=== PATIENT | male | born 1985 | race Caucasian/White ===

== ENCOUNTER 2022-12-25 08:00 | Outpatient (RCR) | payer OTHER, MEDICAID, SELFPAY ==
--- NOTE | 2022-12-25 09:00 | BH.SGPN.GN ---
Behaviors/Verbalizations/Mental Status: [] Eye contact is good. Motor activity is appropriate. Appearance is casual. Speech is Appropriate. Mood is depressed. Affect is flat. Thoughts are linear and logical. No evidence of psychosis. Reviewed daily check in sheet and pt reports 4/5 for suicidal ideations and 0/5 for intent. Completed [facility] screening prior to group. This may be baseline. Client Response/Progress/Benefit: [] Pt participate when prompted. Attentive. Daily symptom tracker notes 5/5 for depression, anxiety, and irritability. This was pt's first day in the PHP program. Shared with the group that his goals are to be better than I was Reported struggles mainly with depression, anxiety, anger, and stress. He did not elaborate much and was brief regarding his mental health struggles. No progress noted as this was first day in PHP. Group empathized with his struggles and provided support, suggestions, and advice for his first day in PHP which was beneficial.Will continue in IOP to prevent decompensation/re-admission to psych unit, maintain safety, increase healthy coping, and improve functioning. Narrative Note: []
--- NOTE | 2022-12-25 09:00 | BH.COMM_ITS ---
Communication Note - Communication with Client Communication Note: Pt completed initial paperwork. No significant changes since pre-admission screening. Completed [facility]. Consulted with Dr. Luevano with plan to admit to [facility] with hx of F33.1. Treatment team in agreement with starting patient today as opposed to next week due to severity of symptoms. Based on current symptoms he meets criteria and would benefit from immediate admission to the program rather than waiting till next week simply to appease the 48 hour rule for psych evals.
--- NOTE | 2022-12-25 10:15 | BH.SGPN.GN ---
Behaviors/Verbalizations/Mental Status: []Eye contact is good. Motor activity is appropriate. Appearance is casual. Speech is Appropriate. Mood is depressed. Affect is constricted. Thoughts are linear and logical. No evidence of psychosis. Client Response/Progress/Benefit: [] Pt was a passive participant in group discussions. Attentive during psychoeducation on the 4 communication styles and the obstacles to effective communication. listened during interactive discussion on the benefits of communicating effectively which included; having one's needs met, helping others get their needs met, and building connection with others. Worked well in small group in which pt and peers identified the benefits and disadvantages to the different communication styles. Pt reports being passive which reinforces depression. Benefited from increased understanding of communication styles and how these can impact effective communication. Will continue PHP tx to prevent decompensation, gain healthy coping skills, and reduce suicidal ideations. Narrative Note: []
--- NOTE | 2022-12-25 11:15 | BH.SGPN.GN ---
Behaviors/Verbalizations/Mental Status: []Client alert and oriented, casually dressed and groomed. Eye contact good. Motor activity appropriate. Speech within normal limits. Affect congruent, mood anxious and depressed. Thoughts linear, logical, no signs of hallucinations or delusions Client Response/Progress/Benefit: []Client responded well to session AEB client listening attentively to others and providing input during group discussion. Client did well in the activity to be assertive and ask for feedback. Recognizes if group wasn't assertive in activity, they wouldn't have been successful. Discussed with group communication strategies used to make activity successful. Attentive during psychoeducation on interpersonal DBT skill CHRISTO. Client seemed to benefit from increasing awareness of healthy strategies to improve communication. Will d/c from IOP tx given progress made and improved stability. Pt to continue PHP tx to improve daily functioning, increase mood stability, and prevent decompensation. Narrative Note: []
--- NOTE | 2022-12-25 14:00 | BH.MTP_ITS ---
Master Treatment Plan Patient Information Program Physician:: Leonor Araujo Primary Therapist:: Boogie Molina Psychiatric Diagnoses Psychiatric Diagnoses:: MDD, recurrent, severe, w/o psychosis Anxiety Disorder, unspecified PTSD Alcohol and opiate use disorders, in remission for 10 years Diagnosis Code(s):: F33.2 Estimated LOS Estimated LOS (in weeks):: 2 Problem/Goal #1 Problem/Goal #1 Stated Goal:: Client will reduce depressive symptoms, worthlessness, negative core beliefs, and suicidal thoughts AEB by self report. Description of Barriers: Chronic pain, significant psychosocial stressors, limited progress from traditional outpatient interventions, treatment resistant depression. Functional Impact: Mental health symptoms impacting overall functioning at home and socially. Along with physical pain mental health impacting ability to ma intain employment. Goal Relevant Strengths/Supports: Intelligent, motivated, insight into his mental health struggles and obstacles Objectives Objective #1: Stated Objective: Client will work with therapist to develop a ?crisis plan? which includes emergency telephone numbers, internal/external coping strat egies for SI/overwhelming emotions, lists of supports, warning signs, positive aspects of life, and motivations. Interventions: Through individual and group counseling pt will learn and practice various internal and external coping skills for emotional dysregulation. Therapist will provide patient with safety plan worksheet (if he desires) and work with pt. to develop individualized plan which includes internal coping skills, external coping skills, support, and crisis numbers. Discharge Criteria: Complete safety plan and be able to verbalize plan to therapist (if he chooses not to complete worksheet). Target Date: 01/08/23 Review Date: 01/07/23 Objective #2: Stated Objective: Client will identify and replace 2-3 negative thinking patterns that reinforce depressive symptoms, self-hate, mistaken beliefs, and negative self-talk. Interventions: Through individual and group counseling will provide education on mistaken beliefs, CBT concepts, cognitive distortions and teach client the connection between thoughts, emotions, and feelings. Therapist will assist client in identifying, challenging, and replacing dysfunctional thoughts with positive, more realistic thoughts. Discharge Criteria: Start a though log. Identify 3 mistaken beliefs and cognitive distortions. Target Date: 01/08/23 Review Date: 01/07/23 Problem/Goal #2 Problem/Goal #2 Stated Goal:: Stabilize anxiety level while increasing ability to function on a daily basis AEB self-report Description of Barriers: Chronic pain, significant psychosocial stressors, limited progress from traditional outpatient interventions, Functional Impact: Mental health symptoms impacting overall functioning at home and socially. Along with physical pain mental health impacting ability to maintain employment. Goal Relevant Strengths/Supports: Intelligent, motivated, insight into his mental health struggles and obstacles Objectives Objective #1: Stated Objective: Client will learn and implement 2-3 calming skills to reduce overall anxiety and manage anxiety Interventions: Through individual and group counseling will teach the client calming/relaxation skills (e.g., muscle relaxation, mindful breathing) and how to discriminate better between relaxation and tension; teach the client how to apply these skills to his/her daily life. Discharge Criteria: Able to identify and utilize 2-3 calming skills on consistent basis. Target Date: 01/08/23 Review Date: 01/07/23
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
--- NOTE | 2022-12-25 14:19 | BH.MDN_ITS ---
Multi-Disciplinary Note - Note 45-min Individual Time Started:: 12:00 Date: 12/25/22 Purpose of session/treatment goals addressed:: Used to session to process first day in [facility] obtain history and current symptoms, and to begin to develop treatment plan goals. Eye Contact:: Good Motor Activity:: Appropriate Appearance:: Casual Speech:: Appropriate Mood:: Depressed Affect:: Congruent Thoughts:: Linear, Logical, No evidence of hallucinations/delusions noted Staff Interventions:: psychoeducation on: - mistaken beliefs and cognitive distortions, CBT techniques, treatment planning, goal setting Client Response:: Pt shared that his first day in [facility] was better than expected. Briefly discussed negative experience during inpatient admission at [facility] stating it was like long-term. Pt reports fleeting suicidal thoughts with methods (OD on pills) for several years, however recent exacerbation which led to voluntary inpatient admission from 12/09/22-12/13/22. Psychosocial stressors include chronic back pain, financial stress, and inability to maintain employment. 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 He is linked with outpatient therapist and psychiatrist who referred him to [facility]. His goals for treatment are Stop the ideations, Stop the negative thinking, and stop the over-thinking. Pt reports he will ruminate extensively on his problems and can't stop till I find a solution. Since most of his struggles do not have a solution he feels like a failure which ultimately leads to depression, hopelessness, and suicidal ideations. Belief that the more he analyzes a problem the higher the likelihood he will come to a solution. Risks/Concerns:: He denied active suicidal ideations, plan, or intent. He reports that the suicidal thoughts switch between passive thoughts of , survival ambivalence, and though about killing himself. Thoughts are mainly passive. Denies any history of attempts. Denies any history if intent. Protective factors are his children and . Progress Toward Goals/Plan:: Limited progress as this was pt's first day in [facility] He reported a positive experience participating in [facility] today and promises to return tomorrow. Support was beneficial today. Has working knowledge of CBT techniques, [id number], and ways to retrain the brain which he mainly taught himself through apps and internet research. He reports however that he struggles to implement these skills when overwhelmed. They appear to be reactive and after the fact when he is journaling. Receptive to education on CBT and mistaken beliefs. He is aware of crisis numbers and agreed to call crisis, PHP program, or proceed to the ER if he has strong urge to harm himself. Time Stopped:: 12:45
--- NOTE | 2022-12-25 14:39 | BH.MTP ---
Master Treatment Plan - Patient Information Program Physician:: Leonor Luevano Primary Therapist:: Boogie Molina - Estimated LOS Estimated LOS (in weeks):: 2
--- NOTE | 2022-12-25 14:39 | BH.PSA ---
Suicide Assessment Treatment Plan Recommendations
--- NOTE | 2022-12-26 09:00 | BH.SGPN.GN ---
Behaviors/Verbalizations/Mental Status: [] Eye contact is good. Motor activity is appropriate. Appearance is casual. Speech is Appropriate. Mood is depressed. Affect is congruent. Thoughts are linear and logical. No evidence of psychosis. Reviewed daily check in sheet and pt reports 3/5 for suicidal thoughts or note being in existence and 0/5 for intent. This is improved from yesterday. Client Response/Progress/Benefit: [] Pt participated at times during the group discussion. Attentive. Emotion for today is pain referring to his physical pain. Daily symptom tracker notes 5/5 for depression and irritability; 4/5 for anxiety. Pt's check in was very brief stating the his mental health win was completing responsibilities around the house. Briefly discussed his hobbies and how they are beneficial to his mental health. This is only second day of PHP so limited progress noted. Shared significant stressor is related to finances. Benefited from group support, encouragement, and feedback. Will continue in PHP to maintain safety, increase healthy coping, and to prevent decompensation/-re-admission. Narrative Note: []
--- NOTE | 2022-12-26 10:05 | BH.SGPN.GN ---
Behaviors/Verbalizations/Mental Status: []Pt alert and oriented, casually dressed and groomed. Eye contact good. Motor activity appropriate. Speech within normal limits. Affect congruent, mood anxious and depressed. Thoughts linear, logical, no signs of hallucinations or delusions. Client Response/Progress/Benefit: []Pt responded well to session, attentive during psychoeducation on SMART goals (Specific, Measurable, Achievable, Realistic, and Time-bound). Participated in an interactive discussion with peers in which they worked together to define what a goal is and the benefits of having goals. Group identified benefits as; gives purpose, improves motivation, improves relationships, and personal growth. Participated in small group discussion identifying barriers to setting goals and following through with goals. Pt identified his personal barriers to include unrealistic expectations, distortions, and fear of judgement. Benefited from increased awareness of benefits and strategies for goal-setting. Pt to continue in PHP to promote mood stability, maintain safety, as well as further promote self-care and prevent decompensation. Narrative Note: []
--- NOTE | 2022-12-26 13:48 | BH.MDN ---
Multi-Disciplinary Note - Note 60-min Individual Time Started:: 12:05 Date: 12/26/22 Purpose of session/treatment goals addressed:: Used the session to review current symptoms and progress. Treatment planning. Eye Contact:: Good Motor Activity:: Appropriate Appearance:: Casual Speech:: Appropriate Mood:: Depressed Affect:: Congruent Thoughts:: Linear, Logical, No evidence of hallucinations/delusions noted Staff Interventions:: psychoeducation on: - mistaken beliefs, CBT techniques - introduced thought log Client Response:: Pt continues to report benefit from PHP groups. Briefly discussed the group topic today which was SMART goals. Current coping strategies that he finds most beneficial is journaling. He has several different types of journals and has watched YouTube videos and researched effective techniques for journaling. Journaling helps give clarity to his thoughts and is a way to vent his emotions, frustrations, and thoughts. Pt also reports benefits from his hobbies (woodworking, gardening, playing drums). Receptive to education on cognitive distortions and mistaken beliefs which was a majority of the session. Risks/Concerns:: Pt reports fleeting suicidal thoughts for several years. Thoughts are primarily passive. No active SI, plan, or intent. Protective factors. Future-oriented. No current concerns as he is currently near baseline. According to his daily symptom tracker his SI scores reduced from yesterday. Progress Toward Goals/Plan:: Pt reports progress since starting IOP. According to self-report he is benefiting from group support and psychoeducation. Pt expressed interest in CBT skills so today was spent introducing the connection between thoughts, feelings, and actions. Also introduced cognitive distortions. Was given assignment to start a thought log and to read a handout on mistaken beliefs. Primary coping skills are currently distraction through hobbies and journaling. Journaling is basically used to vent thoughts. He does not review his thoughts after writing them down not does he attempt to challenge or reframe. Goal is to gain insight into his negative automatic thoughts and cognitive distortion to begin to reframe and challenge. Plan is to continue in PHP to maintain safety, prevent decompensation/re-admission, and to stabilize mood. Time Stopped:: 12:55
--- NOTE | 2022-12-29 09:00 | BH.SGPN.GN ---
Behaviors/Verbalizations/Mental Status: []Eye contact good. Motor activity appropriate. Speech within normal limits. Affect flat, mood depressed. Thoughts linear, logical, no signs of hallucinations or delusions. Reviewed client?s symptom tracker, no risk for suicidal ideation, plan, or intent as of 12/29/2022. Client Response/Progress/Benefit: []Pt responded well to session, attentive and engaged. Pt reports feeling blah this morning as pt continues to report financial issues as his biggest stressor. Pt shared he is finding benefit from PHP tx though and pt reports he is using skills outside of IOP. Pt's mental health win today is that he worked outside in his garden this weekend and he has been reading self-help books. Pt appeared to benefit from positive reinforcement and reflecting on his application of coping skills. Pt will continue PHP tx to promote mood stability, further reduce negative thinking patterns, and improve daily functioning. Narrative Note: []
--- NOTE | 2022-12-29 10:10 | BH.SGPN.GN ---
Behaviors/Verbalizations/Mental Status: []Client alert and oriented, casually dressed and groomed. Eye contact fair. Motor activity appropriate. Speech within normal limits. Affect constricted, mood dysthymic. Thoughts linear, logical, no signs of hallucinations or delusions. Client Response/Progress/Benefit: []Client was an engaged participant in group discussions and activity. Attentive during psychoeducation. Client engaged in activity in which group was able to make connections about how can be easier to find positives in others compared to self. Engaged in interactive discussion on the definition of perspective, how perspective is formed, and why perspective is important in treatment. Client stated when he first started treatment his perspective was very negative and identifies today his perspective is starting to move towards hopeful. Client stated he recognizes he needs to be more honest and open. Will continue in PHP to increase healthy coping, challenge negative thinking, and prevent decompensation.
--- NOTE | 2022-12-29 11:20 | BH.SGPN.GN ---
Behaviors/Verbalizations/Mental Status: []Pt alert and oriented, casually dressed and groomed. Eye contact good. Motor activity appropriate. Speech within normal limits. Affect congruent, mood euthymic and anxious. Thoughts linear, logical, no signs of hallucinations or delusions. Client Response/Progress/Benefit: []Pt was attentive and contributed to small group discussion. Pt worked with group to identify strategies to challenge one?s perspective which group identified: thought challenge, reaching out to supports, grounding skills, and accomplishment log. Connected with discussion on the importance of recognizing personal strengths in challenging perspective. Pt acknowledged a personal strength of gratitude and pt wants to work on challenging perspective by practicing reaching out to his support system to help him challenge perspective. Benefited from identifying personal strengths and strategies for challenging perspective. Pt to continue PHP tx to promote mood stability, increase use of healthy coping skills, and prevent decompensation. Narrative Note: []
--- NOTE | 2022-12-29 12:44 | BH.MDN ---
Multi-Disciplinary Note - Note 45-min Individual Time Started:: 12:00 Date: 12/29/22 Purpose of session/treatment goals addressed:: To review homework from last session on mistaken beliefs and practice cognitive restructuring. Eye Contact:: Good Motor Activity:: Appropriate Appearance:: Neat Speech:: Appropriate Mood:: Euthymic Affect:: Full Thoughts:: Linear, Logical, No evidence of hallucinations/delusions noted Staff Interventions:: thought challenging, CBT techniques, strengths perspective, goal setting, taught coping skills - discussed dialectical thinking, other - reviewed homework on mistaken beliefs. Client Response:: Pt responded well to meeting with therapist as pt's regular PHP therapist is out of the office. Pt shared he completed his homework and found it helpful in identifying his mistaken beliefs and distortions. Pt noted that his self-assessment could change based on his mood for the day and right now I go from positive to negative so quickly. Pt connected with the mistaken belief of not being able to trust people or rely on others and that he has to be perfect. Pt shared most of his beliefs were taught to him in childhood and he wants to break this cycle from continuing with his own kids. Pt shared he has been writing out his thoughts using a thought log and pt finds this helpful. Pt stated he understands that it will take time to rewire his brain, but pt is trying to immerse himself in mental health treatment so he can do this. Pt shared he practiced thought challenging over the weekend and found it helpful. Discussed the importance of changing behaviors as well as challenging mistaken beliefs to form new core beliefs. Pt receptive to handout on five questions to ask your mistaken beliefs. Pt encouraged to use this when he works on his thought logs. Risks/Concerns:: Pt denied active suicidal ideations, plan, or intent. Pt reports that the suicidal thoughts switch between passive thoughts of , survival ambivalence, and thoughts about killing himself. Thoughts are mainly passive. Denies any history of attempts. Denies any history if intent. Protective factors are his children and . Progress Toward Goals/Plan:: Pt appears to be making progress towards tx goals AEB his self-report of practicing coping skills outside of IOP and pt completing his homework consistently. Pt's motivation levels are high and pt reports I will do whatever it takes to get better. Pt continues to endorse a depressed mood, negative thinking patterns, chronic SI, worthlessness, and ruminations. Pt will continue in PHP to maintain safety, prevent decompensation/re-admission, and to stabilize mood. Time Stopped:: 12:38
--- NOTE | 2022-12-30 11:16 | BH.COMM_ITS ---
Communication Note - Communication with Client Communication Note: Pt cancelled PHP today. He had a medical appointment s cheduled in the AM which conflicted with the program
--- NOTE | 2022-12-30 11:16 | BH.COMM ---
Communication Note - Communication with Client Communication Note: Pt cancelled PHP today. He had a medical appointment scheduled in the AM which conflicted with the program
--- NOTE | 2022-12-31 08:45 | BH.NA ---
Physical Data Vital Signs Pulse Rate: 66 Blood Pressure: 134/87 Height/Weight Height: 1.8 m Weight:: 81.647 kg Weight in Pounds: 180.0 lbs Current Medication Compliance Medication Compliance Do you take your medication as prescribed?: Yes Nutritional History Appetite Nutritional Instructions: Describe your appetite:: Fair Additional nutritional information:: Client states his weight fluctuates between 175-200lbs. Client reports a decreased appetite. Functional Assessment Sleep Pattern Describe any problems with sleeping: Client states since his hospitalization in early December, he has been sleeping about 2-5 hours per night. Sensory/Communication Assess Communication Problems Do you have difficulty understanding what people are saying?: No Medical Problems/History Neurological Conditions Neurological: Other (See comments) Comments:: one seizure in 2009 Musculoskeletal Conditions Musculoskeletal: Other (See comments) Comments:: chronic back pain since a work injury in the early Pain Assessment Do you have acute or chronic pain?: Yes (back) Surgical History Surgical History Have you had any surgeries? If so, list type and date:: Yes (eardrum reconstruction) Substance Abuse Substance Abuse Please describe substance abuse in the last 30 days:: Client states he has been sober of alcohol and opiates for 10 years. Client states he was taking opiates years ago when he first had his back injury. Client chews tobacco. Client states he has a medical marijuana card and he uses it daily all the time to help with his back pain. Mental Status Summary Mental Status Significant Findings/Observations on Appearance and Mood:: Client is alert and oriented x4. Client is casually groomed with good hygiene. Client is cooperative with assessment. Client makes good eye contact. Client's voice has normal rate and volume. Client has appropriate affect. Client makes logical associations. Client has normal processing. Client denies delusions/hallucinations. Client states he has chronic fleeting SI, denies intent or plan since hospitalization in early December. Suicide Assessment Suicidal Ideation Are you currently or have you been suicidal in the past?: Yes (fleeting SI) Suicidal Intentional Rating Scale (SIRS): Suicidal thoughts (past) Physician Notification Past Psychiatric History MH Treatment Hx Past Psychiatric Medications:: Celexa, Gabapentin, others he does not remember names of Age of first mental health symptoms: Client states he first felt depressed around age 7 and was first on medication for his mental health as a teenager. Describe (age, circumstance, etc) any past hospitalizations: December 09-2022 at [facility] in [place] voluntarily for SI with thoughts of methods. Client does have a history of suicide attempts as a teenager. Current providers for mental health treatment (counselor, psychiatrist, family service caseworker, etc.): [id number] counseling and psychiatry Fall Risk Assessment Age Age: Less than 60 Mental Status Mental Status: Willing & able to ask for assistance when needed Physical Status Physical Status: No problems Impairments Impairments: None Elimination Elimination: Continent AND independent Gait or Balance Gait or Balance: Walks independently Hx of Falls History of falls in the past 6 months: No known history Medications/Substances Psychotropics:: Antipsychotics Medications/substances used within the past 24 hours or ordered to administer: 1-2 of the medications/substances listed above Total Score Total Points:: 1 RN Summary of Impressions Impressions Recommendations Impressions: Psychiatric Issues: 1. Major depressive disorder, recurrent, severe without psychosis 2. Anxiety disorder, unspecifid 3. PTSD 4. Alcohol and opiate use disorders, in remission for 10 years Level of Care How do the client's current symptoms and functional deficits support need for this level of care?: Client was referred to IOP/PHP by outpatient psychiatry after a voluntary hospitalization for SI with thoughts of methods earlier this month. Client states he has felt like he is in a dark place for awhile, and states he started having thoughts of how he could kill himself. Client states he has chronic suicidal thoughts, but usually they are fleeting and he does not have intent/plan. Client states when he started to think about methods, he knew he needed more help. Client reports hospitalization was not very helpful, but states he is glad to be in IOP/PHP. Client states his biggest stressor is financial, stating I'm just tired of feeling like I can't afford anything and not being able to work. Client reports daily guilt over not providing financially for his family. IOP/PHP will promote gains and prevent further decompensation while providing social support and skills training.
--- NOTE | 2022-12-31 09:05 | BH.SGPN.GN ---
Behaviors/Verbalizations/Mental Status: []Eye contact fair to good. Motor activity appropriate. Speech within normal limits. Affect congruent, mood anxious and hopeful. Thoughts linear, logical, no signs of hallucinations or delusions. Reviewed client?s symptom tracker, no reported suicidal ideation, denies plan, or intent as of 12/31/2022. Client Response/Progress/Benefit: [] Client receptive of session, attentive and willing to process with group. Identified current mental health wins as having an initial ECT tx consultation and is feeling more encouraged and hopeful as a result. Additional win identified as helping a stray cat in the neighborhood deliver kittens and feeling excited about taking on some of the caregiving responsibilities and feeling proud of doing something kind for someone else. Current stressor noted as finances, however shared recently getting on food stamps which has helped to reduce some of his stress as well. Client appeared to benefit from group support and encouragement. Recommended continued PHP tx to continue to increase overall functioning, improve distress tolerance and thought challenging, as well as promote mood stability. Narrative Note: []
[2022-12-31 09:28] VITALS: BP 134/87; PULSE 66
--- NOTE | 2022-12-31 10:15 | BH.SGPN.GN ---
Behaviors/Verbalizations/Mental Status: [] Client alert and oriented, casually dressed and groomed. Eye contact good. Motor activity appropriate. Speech within normal limits. Affect congruent, mood euthymic. Thoughts linear, logical, no signs of hallucinations or delusions. Client Response/Progress/Benefit: [] Client responded session by being attentive and taking notes. Client provided some input during discussion. Group identified the benefits of change which included: personal growth, positive perspective, increased confidence and better mental health. Worked with the group to identify barriers to change, which included: uncomfortable emotions such as anxiety, lack of awareness, low energy, support system, and negative thinking. Client stated fear and anxiety about the income are barriers that keep him from making changes. Client attentive in activity where they identified and discussed the emotions related to change. Appear to benefit from increased awareness and understanding of emotions, benefits, and barriers related to change. Will continue IOP tx to improve daily functioning, increase healthy coping skills, and prevent decompensation.
--- NOTE | 2022-12-31 11:15 | BH.SGPN.GN ---
Behaviors/Verbalizations/Mental Status: []Pt alert and oriented, neatly dressed and groomed. Eye contact fair. Motor activity appropriate. Speech within normal limits. Affect congruent, mood euthymic. Thoughts linear, logical, no signs of hallucinations or delusions Client Response/Progress/Benefit: [] Pt responded well to session, attentive AEB participating in activity and actively engaging in group discussion. Group processed activity to relate the strategies used to overcome barriers in the activity to managing change in own life. Discussed and set SMART goal in group as it relates to change group members are wanting to make. Pt identified change they want as reducing negative self-talk by using a thought log. Identified being in the action stage but negative thinking patterns keeping pt from following through consistently. Pt stated to get to the action stage consistently, pt will need to use opposite action and schedule time. Appeared to benefit from identifying a small goal to work towards. Pt will continue PHP tx to prevent decompensation and rehospitalization. Narrative Note: []
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
--- NOTE | 2022-12-31 12:21 | BH.DR.ITP ---
Initial Treatment Plan Patient Information Visit Information: ADMISSION DATE: EXPECTED LOS: 4-6 weeks Problems/Symptoms Problem #1:: Depression Symptom:: Sadness, hopelessness, low energy, decreased concentration, biological disruption of appetite and weight, passive thoughts of , fleeting, passive suicidal ideation Problem #2:: Anxiety Symptom:: Worry, rumination, flashbacks, nightmares, panic attacks
--- NOTE | 2023-01-01 09:00 | BH.SGPN.GN ---
Behaviors/Verbalizations/Mental Status: [] Eye contact is good. Motor activity is appropriate. Appearance is casual. Speech is Appropriate. Mood is anxious. Affect is congruent. Thoughts are linear and logical. No evidence of psychosis. Reviewed daily check in sheet and pt reports 1/5 for suicidal thoughts and 0/5 for intent. This has been baseline. Client Response/Progress/Benefit: [] Pt participated at times during the group discussion. Attentive. Daily symptom tracker notes 5/5 for depression, anxiety, and irritability. Despite these high scores he reports being 'hopeful. Elaborates that he feels hopeful about the possibility of obtaining SSDI in the future. He has struggled to maintain consistent employment due to physical and mental health symptoms for the past 20 years. Being unemployed has led to significant financial stressors stating the bank called again yesterday about the house. Pt is behind on his mortgage payments and is fearful they will lose the house. At this point he has not plan of action and appears to have resigned to the fact that the house will be foreclosed on it is what it is. Limited progress. Ruminations. Limited motivation or sense of urgency to act on stressors. Will continuue in PHP to maitnain safety, prevent decompensation/re-admission, and to increase healthy coping. Narrative Note: []
--- NOTE | 2023-01-01 10:15 | BH.SGPN.GN ---
Behaviors/Verbalizations/Mental Status: []Pt alert and oriented, casually dressed and groomed. Eye contact good. Motor activity appropriate. Speech within normal limits. Affect congruent, mood anxious. Thoughts linear, logical, no signs of hallucinations or delusions. Client Response/Progress/Benefit: []Pt receptive to session AEB contributing to discussion, as well listening attentively to others, and taking notes. Worked with group to brainstorm the positive and negative aspects of stress on physical and mental health. Group did well to identify the benefits of stress as well as the impact of distress on performance, relationships, and mental health. Pt identified their personal top stressors as: physical health, his mental health, and his finances. Pt seemed to benefit from increased awareness of current stressors and impact stress has on mental health. Recommended to continue PHP tx to prevent decompensation, increase stress management skills, and improve self-esteem. ?? Narrative Note: []
--- NOTE | 2023-01-01 11:15 | BH.SGPN.GN ---
Behaviors/Verbalizations/Mental Status: []Eye contact is good. Motor activity is appropriate. Appearance is casual. Speech is Appropriate. Mood is anxious and depressed. Affect is congruent. Thoughts are linear and logical. No evidence of psychosis. Client Response/Progress/Benefit: []Pt was an active participant in group discussions and experiential activity. Attentive during psychoeducation on the 4 A's (Avoid, adapt, alter, accept) of coping with stress as well as strategies to identify stressors in which one has no control, little control, or a great deal of control over. Shared that he would benefit most from working on avoid in regards to coping with stress of his current physical health problems by avoiding doing more than he is physically able to. Was able to identify the connection between the experimental activity and utilization of stress management skills. Benefited from increased awareness of stress management strategies. Will continue in PHP to maintain safety, prevent decompensation, and to increase healthy coping skills. Narrative Note: []
--- NOTE | 2023-01-01 13:00 | BH.MDN ---
Multi-Disciplinary Note Note 60-min Individual: Time Started:: 12:05 Date: 01/01/23 Purpose of session/treatment goals addressed:: Met with patient to review progress and current symptoms. Addressed treatment plan goals 1 and 2. Eye Contact:: Good Motor Activity:: Restless Appearance:: Casual Speech:: Appropriate Mood:: Irritable and Depressed Affect:: Congruent Thoughts:: Linear and No evidence of hallucinations/delusions noted Staff Interventions:: motivational interviewing, rapport building, treatment planning, goal setting and other (Developed an action strategy to address housing and disability stressors which are impacting pt's mental health)) Client Response:: Pt presents today reporting that he received another call from the [employer] regarding missing his mortgage for the straight month. According to pt he has spoken with bank representatives and they are aware of his current struggles however I don't think they care. He reports several outstanding bills and significant financial stressors. While his continues to work full-time pt reports the due to his physical pain and mental struggles he has not been able to maintain consistent employment. Tearful stating the its tough not to be able to provide for my family. When asked about option or plans regarding housing for the future pt states there nothing that can be done. Fearful that his and 2 kids will be homeless. States no family support that would be willing to house the family or help financially. Ruminations on several possibilities such as selling or renting the house, however has been unable to take action or make decision. I'm just waiting for them to kick us out He reports that he has accepted the fact that getting evicted is the most likely scenario and appears to have simply resigned to this fact and given up. Being unable to find solutions to numerous difficulty situations in his life (pain, finances, mental health, etc) he appears to have learned to simply take no action (learned helplessness). Therapist challenged him on strategies to gather more data ([facility] or [facility]ting, calling local housing authority to determine if the qualify for low-income housing, reaching out to local resources for assistance). He has also given up on applying for disability due to a paperwork obstacle so we problem-solved ways to overcome that obstacle. Risks/Concerns:: Pt continues to verbalize daily suicidal ideations (mostly passive/survival ambivalence). Denies active SI, plan, or intent. Daily scores are baseline. Progress Toward Goals/Plan:: Pt reports that PHP has been very helpful as a form of education and support. Primary coping skills is distraction (hobbies) which is helpful Learning internal coping CBT skills. Significant psychosocial stressors are impacting progress and mental health. Daily triggers to his struggles (phone calls from back and debt collectors) which exacerbate his symptoms. Currently in jeopardy of losing his house and being homeless however appears to have to action plan or prevent this from occurring. [place] helpless due to inability to find solutions to numerous difficult life situations. Utilized motivational interviewing and goal-setting strategies to identify an active plan to address housing and filing SSDI paperwork. Plan is to continue in PHP to maintain safety, prevent decompensation/re-admission, and to increase healthy coping skills. Time Stopped:: 13:00
--- NOTE | 2023-01-01 14:05 | BH.MDN_ITS ---
Multi-Disciplinary Note Note 60-min Individual: Time Started:: 12:05 Date: 12/31/22 Purpose of session/treatment goals addressed:: Purpose of the session was review current symptoms and progress in IOP. Used the session to review thought log Eye Contact:: Good Motor Activity:: Appropriate Appearance:: Casual Speech:: Appropriate Mood:: Anxious and Irritable Affect:: Congruent Thoughts:: Linear Staff Interventions:: thought challenging, CBT techniques, rapport building and treatment planning Client Response:: Pt continues to report benefit from group counseling and support. Finds that focusing on his mental health 4 hours a day is both di stracting and educational. Pt had completed homework from last week and a majority of the session was spent reviewing his thought log. Pt has been tracking his automatic negative thoughts, cognitive distortions, and then his response. He has also begun to challenge and re-frame his thoughts. We reviewed and processed each entry. Risks/Concerns:: Pt verbalize daily suicidal thoughts which he reports are mainly passive. Denies any plan or intent. Reports 1/5 for suicidal thoughts per daily tracker and 0/5 for intent. This has been baseline since entering [facility]. Progress Toward Goals/Plan:: Pt continues to report benefit from group counseling and support. Finds that focusing on his mental health 4 hours a day is both distracting and educational. Pt had completed homework from last week and a majority of the session was spent reviewing his thought log. Pt has been tracking his automatic negative thoughts, cognitive distortions, and then his response. He has also begun to challenge and re-frame his thoughts. We reviewed and processed each entry. Time Stopped:: 12:55
--- NOTE | 2023-01-01 14:36 | BH.MDN_ITS ---
Multi-Disciplinary Note Note 60-min Individual: Time Started:: 12:05 Date: 01/01/23 Purpose of session/treatment goals addressed:: Met with patient to review progress and current symptoms. Addressed treatment plan goals 1 and 2. Eye Contact:: Good Motor Activity:: Appropriate Appearance:: Casual Speech:: Appropriate Mood:: Depressed Affect:: Congruent Thoughts:: Linear Staff Interventions:: motivational interviewing, rapport building, treatment planning, goal setting and other (Developed an action strategy to address housing and disability stressors which are impacting pt's mental health) Client Response:: Pt presents today reporting that he received another call from the [employer] regarding missing his mortgage for the straight month. According to pt he has spoken with bank representatives and they are aware of his current struggles however I don't think they care. He reports several outstanding bills and significant financial stressors. While his continues to work full-time pt reports the due to his physical pain and mental struggles he has not been able to maintain consistent employment. Tearful stating the its tough not to be able to provide for my family. When asked about option or plans regarding housing for the future pt states there nothing that can be done. Fearful that his and 2 kids will be homeless. States no family support that would be willing to house the family or help financially. Ruminat ions on several possibilities such as selling or renting the house, however has been unable to take action or make decision. I'm just waiting for them to kick us out He reports that he has accepted the fact that getting evicted is the most likely scenario and appears to have simply resigned to this fact and given up. Being unable to find solutions to numerous difficulty situations in his life (pain, finances, mental health, etc) he appears to have learned to simply take no action (learned helplessness). Therapist challenged him on strategies to gather more data ([facility] selling or [facility]ting, calling local housing authority to determine if the qualify for low-income housing, reaching out to local resources for assistance). He has also given up on applying for disability due to a paperwork obstacle so we problem-solved ways to overcome that obstacle. Risks/Concerns:: Pt continues to verbalize daily suicidal ideations (mostly passive/survival ambivalence). Denies active SI, plan, or intent. Daily scores are baseline. Progress Toward Goals/Plan:: Pt reports that PHP has been very helpful as a form of education and support. Primary coping skills is distraction (hobbies) which is helpful Learning internal coping CBT skills. Significant psychosocial stressors are impacting progress and mental health. Daily triggers to his struggles (phone calls from back and debt collectors) which exacerbate his symptoms. Currently in jeopardy of losing his house and being homeless however appears to have to action plan or prevent this from occurring. [place] helpless due to inability to find solutions to numerous difficult life situations. Utilized motivational interviewing and goal-setting strategies to identify an active plan to address housing and filing SSDI paperwork. Plan is to continue in PHP to maintain safety, prevent decompensation/re-admission, and to increase healthy coping skills.
--- NOTE | 2023-01-01 15:10 | BH.MTP_ITS ---
Master Treatment Plan Patient Information Program Physician:: Leonor Araujo Primary Therapist:: Boogie Molina Psychiatric Diagnoses Psychiatric Diagnoses:: MDD, recurrent, severe, w/o psychosis Anxiety Disorder, unspecified PTSD Alcohol and opiate use disorders, in remission for 10 years Diagnosis Code(s):: f33.2 Estimated LOS Estimated LOS (in weeks):: 2 Problem/Goal #1 Problem/Goal #1 Stated Goal:: anxiety Description of Barriers: Chronic pain, significant psychosocial stressors, limited progress from traditional outpatient interventions, treatment resistant depression. Functional Impact: Mental health symptoms impacting overall functioning at home and socially. Along with physical pain mental health impacting ability to maintain employment. Goal Relevant Strengths/Supports: Appears motivated, intelligent, Objectives Objective #1: Stated Objective: Client will work with therapist to develop a ?crisis plan? which includes emergency telephone numbers, internal/external coping strategies for SI/overwhelming emotions, lists of supports, warning signs, positive aspects of life, and motivations. Interventions: Through individual and group counseling pt will learn various coping skills for emotional dysregulation and crisis management strategies. Therapist will provide patient with safety plan worksheet and work with pt. to develop individualized plan Discharge Criteria: Complete safety/crisis plan. Target Date: 01/08/23 Review Date: 01/07/23 Problem/Goal #2 Problem/Goal #2 Stated Goal:: anxiety Description of Barriers: Chronic pain, significant psychosocial stressors, limited progress from traditional outpatient interventions, treatment resistant depression. Functional Impact: Mental health symptoms impacting overall functioning at home and socially. Along with physical pain mental health impacting ability to maintain employment. Goal Relevant Strengths/Supports: Appears motivated, intelligent, Problem/Goal #3 Problem/Goal #3 Stated Goal:: anxiety Description of Barriers: Chronic pain, significant psychosocial stressors, limited progress from traditional outpatient interventions, treatment resistant depression. Functional Impact: Mental health symptoms impacting overall functioning at home and socially. Along with physical pain mental health impacting ability to maintain employment. Goal Relevant Strengths/Supports: Appears motivated, intelligent, Problem/Goal #4 Problem/Goal #4 Stated Goal:: anxiety Description of Barriers: Chronic pain, significant psychosocial stressors, limited progress from traditional outpatient interventions, treatment resistant depression. Functional Impact: Mental health symptoms impacting overall functioning at home and socially. Along with physical pain mental health impacting ability to main tain employment. Goal Relevant Strengths/Supports: Appears motivated, intelligent, Problem/Goal #5 Problem/Goal #5 Stated Goal:: anxiety Description of Barriers: Chronic pain, significant psychosocial stressors, limited progress from traditional outpatient interventions, treatment resistant depression. Functional Impact: Mental health symptoms impacting overall functioning at home and socially. Along with physical pain mental health impacting ability to maintain employment. Goal Relevant Strengths/Supports: Appears motivated, intelligent,
--- NOTE | 2023-01-02 09:00 | BH.SGPN.GN ---
Behaviors/Verbalizations/Mental Status: [] Eye contact is good. Motor activity is appropriate. Appearance is casual. Speech is Appropriate. Mood is sad. Affect is congruent. Thoughts are linear and logical. No evidence of psychosis. Reviewed daily check in sheet and no reports of suicidal ideations or intent. Client Response/Progress/Benefit: [] Pt participated at times during the group discussion. Attentive. Client reported mental positive as making decision with his to sell their house which will help relieve significant financial burden. Client reported he is feeling sad about this decision but recognizes this is the most logical decision to help them potentially make money off the house and reduce significant stress. Client did not find additional months of positive as his applying for subsidized housing to again help decrease financial stress. Client then if I current stressor is having to sell his house which she feels like is the last thing that he owns because he has sold many of his other belongings. Benefited from group support, encouragement, and feedback. Will continue in IOP to prevent decompensation, stabilize mood, and improve functioning.
--- NOTE | 2023-01-02 10:10 | BH.SGPN.GN ---
Behaviors/Verbalizations/Mental Status: [] Eye contact is fair. Alert and oriented. Motor activity is appropriate. Appearance is casual. grooming is appropriate. Speech is Appropriate. Mood is dysthymic. Affect is constricted. Thoughts are linear and logical. No evidence of psychosis or hallucinations. Client Response/Progress/Benefit: []Client passive participate AEB providing no contributions, however did appear to listen attentively to others. The group identified the impact of emotions on communication such as change in tone, body language, shutting down, misperceiving the communication, and reassurance seeking. During group activity, client mostly quiet. Client benefited from session by gaining an increased understanding on the importance of managing emotions to improve daily functioning. Client will continue PHP to maintain gains made, improve anxiety management, and prevent decompensation. Narrative Note: []
--- NOTE | 2023-01-02 11:10 | BH.SGPN.GN ---
Behaviors/Verbalizations/Mental Status: []Pt alert and oriented, neatly dressed and groomed. Eye contact good. Motor activity appropriate. Speech within normal limits. Affect congruent, mood depressed. Thoughts linear, logical, no signs of hallucinations or delusions. Client Response/Progress/Benefit: [] Pt engaged in session AEB Pt listening attentively to peers and providing input. Attentive during psychoeducation on 4 zones of regulation. Pt able to identify feelings and behaviors for each zone. Pt identified coping skills one can use to support self in each zone. Pt reports belief they are in the ?yellow? zone today and pt wants to focus on going for a walk and practicing mindfulness to help pt in this zone. Benefited from increased education on zones of regulation or stages of alertness for emotions and healthy coping skills to use for each zone. Will discharge from PHP tx to IOP tx as pt has made progress and can continue to work on increasing healthy coping skills and improving mood stability. Narrative Note: []
--- NOTE | 2023-01-02 13:22 | BH.MDN_ITS ---
Multi-Disciplinary Note Note 45-min Individual: Time Started:: 12:05 Date: 01/02/23 Purpose of session/treatment goals addressed:: Reviewed current symptoms and progress in PHP. Addressed treatment plan goals 1 and 2. Eye Contact:: Good Motor Activity:: Restless Appearance:: Casual Speech:: Appropriate Mood:: Depressed Affect:: Congruent Thoughts:: Linear, Logical and No evidence of hallucinations/delusions noted Staff Interventions:: other (mistaken beliefs) Client Response:: Pt presents today reporting increased back pain which is impacting his overall mood. No specific trigger to worsening pain. Reports increased insight and realizations after yesterday's individual session. Went home and had a conversation with his about looming foreclosure on the house and they decided to put the house up for sale. I don't want to but it's the only option at this point. There is no benefit in just doing nothing. Pt listed the reasons that this decision would be most beneficial to him and his family at this current time. Introduced the concept of 'learned helpless and how it can lead to the mistaken belief of being powerless over one's life ultimately leading to passive responses or to stop trying. He related to this concept across several areas of his life. While he continues to rumination and over-analyze about the stressors he never takes action due to the belief that he will fail like I've always done. Praised for breaking the learned helplessness cycle yesterday but having conversation with and coming up with action plan. States I feel a lot better. Risks/Concerns:: Pt continues to verbalize passive thougths of , however denies active SI, plan, or intent. No overt risk noted. Progress Toward Goals/Plan:: Progress noted per pt report. Consistent and engaged in PHP. Today would make pt's 6th day in PHP. While he reports that his depression and anxiety are still significant and impact his functioning daily hi s suicidal thoughts have never reached above 1/5 on his daily symptom tracker. Suicidal thoughts have also remained passive never getting to the point of thoughts of methods, plan, or intent. While passive thoughts are daily pt reports decreased intensity, frequency, and duration. Overall he reports progress and benefit from PHP. Created and continues to utilize thought log, set up action plan of housing stressor, and reports to be utilized skills learned outside of PHP. We are continuing to work on a solid crisis plan, however he currently has in place internal (thought reframing) and external skills (distractions, calming skills) learned in both PHP and inpatient admission, crisis numbers to call, and reports support that he feels comfortable talking with. Symptoms are stabilizing since psychiatric admission on 12/09/22. Discussed with treatment team and pt and plan is to discharge to [facility] level of care for next week. Time Stopped:: 12:50
--- NOTE | 2023-01-02 14:00 | BH.DS_ITS ---
Discharge Summary Demographics Date of Admission:: 12/25/22 Discharge Date: 01/02/23 Presenting Problems at Admission:: Pt is a 37 y/o male. Diagnosed with MDD, Anxiety Disorder, unspecified, PTSD, and Alcohol and Opiate Use disorders (full remission). Referred to [facility] level of care after recent psychiatric admission to [facility] (12/09/22-12/13/22) for suicidal ideations with thoughts of methods (OD on pills). Pt reports that he voluntarily admitted himself. Pt reports that inpatient hospitalization was horrible and not beneficial to his mental health. Pt endorses depressed mood, long-standing fleeting SI, poor appetitive, crying spells, low energy, isolation, feelings of worthlessness, poor sleep, and anhedonia. Reports panic attacks, racing thoughts, erratic mood, and hx of hypomanic type episodes (energy out of the blue with increased energy for a few days). Denies HI or psychosis. Denies current substance use. Hx of addiction to pain medications and alcohol, however again sober aside from cannabis use for which he has a medical card. Discharge Diagnoses:: 1. Major depressive disorder, recurrent, severe without psychosis 2.Anxiety disorder, unspecified 3. PTSD 4. Alcohol and opiate use disorders, in remission for 10 years Reason for Discharge:: Met treatment plan goals. No longer meets criteria for [facility] level of care. Treatment Progress During Treatment & Response: Progress noted per pt report. Consistent and engaged in PHP. Today would make pt's 6th day in PHP. While he reports that his depression and anxiety are still significant and impact his functioning daily his suicidal thoughts have never reached above 1/5 on his daily symptom tracker. Suicidal thoughts have also remained passive never getting to the point of thoughts of methods, plan, or intent. While passive thoughts are daily pt reports decreased intensity, frequency, and duration. Overall he reports progress and benefit from PHP. Created and continues to utilize thought log, set up action plan of housing stressor, and reports to be utilizing skills. Pt can verbalize crisis/safety plan which involves identifying warning signs/thoughts which indicate decompensation, external coping skills (distraction, music, changing behaviors, playing video games, etc.), internal coping skills (CBT, thought reframing, etc.), support that he can speak with () and then crisis numbers to call if those strategies are not effective.. Symptoms are stabilizing since psychiatric admission on 12/09/22. Discussed with treatment team and pt and plan is to discharge to IOP level of care for next week. Issues Still to be Addressed:: Pt continues to verbalize negative automatic thoughts, passive thoughts of , fleeting SI, anxiety, and anxiety which impact functioning. Numerous psychosocial stressors (housing, finances, etc) which are contributing to distress. Discharge Recommendations/Instructions:: Recommended to step down to IOP level of care to prevent decompensation/re-admission to psych unit, increase healthy coping strategies, and to maintain safety. Discharge Handout
--- NOTE | 2023-01-05 08:20 | BH.DS ---
Discharge Summary Demographics Date of Admission:: 12/25/22 Discharge Date: 01/30/23
== END 2023-01-02 12:57 | disposition home or self-care (01) ==
LOC: BHPHP 08:00
PROVIDERS: PCP Nurse Practitioner Family; Referring Provider Psychiatry & Neurology Psychiatry; Visit Provider Psychiatry & Neurology Psychiatry
DX: F33.2 Major depressive disorder, recurrent severe without psychotic features (principal); F41.9 Anxiety disorder, unspecified; F43.10 Post-traumatic stress disorder, unspecified
CPT/HCPCS: H0035; 90834; 90837; G0410

== ENCOUNTER 2023-01-05 08:00 | Outpatient (RCR) | payer OTHER, MEDICAID, SELFPAY ==
--- NOTE | 2023-01-05 09:00 | BH.SGPN.GN ---
Behaviors/Verbalizations/Mental Status: [] Eye contact is good. Motor activity is appropriate. Appearance is casual. Speech is Appropriate. Mood is anxious. Affect is congruent. Thoughts are linear and logical. No evidence of psychosis. Reviewed daily check in sheet and pt reports 1/5 for suicidal thoughts, which is baseline. Client Response/Progress/Benefit: [] Pt participated when prompted. Attentive. Daily symptom tracker notes 4/5 for anxiety and depression which is actually a point decrease for both since last week. Irritability is 3/5 which is also a decrease from last week. Mental health win involved taking action financial struggles and housing concerns over the weekend. Pt and family began to clean out the house and get it ready to sell. Progress noted as pt appears to be motivated and engaged in problem-solving and decision-making regarding stressors rather than being passive. Benefited from group support, encouragment, and feedback. Will continue in IOP to maintain safety, prevent decompensation/re-admission, and to increase healthy coping skills. Narrative Note: []
--- NOTE | 2023-01-05 11:15 | BH.SGPN.GN ---
Behaviors/Verbalizations/Mental Status: []Pt alert and oriented, neatly dressed and groomed. Eye contact good. Motor activity appropriate. Speech within normal limits. Affect congruent, mood depressed. Thoughts linear, logical, no signs of hallucinations or delusions. Client Response/Progress/Benefit: [] Pt responded well to session, engaged in the experiential activity and attentive throughout group processing. Pt reported fear of failure has kept Pt from finding happiness and connecting with his spouse. Pt completed fear of failure worksheet and was able to identify thoughts and behaviors that reinforce personal fear of failure including fear of being vulnerable, negative self-talk, and all or nothing thinking. Pt participated in group discussion regarding strategies to overcome fear of failure. Identified wanting to work on practicing meditation and gentle yoga. Appeared to benefit from increased knowledge of strategies to combat fear of failure and gaining self-awareness. Pt will continue IOP tx to promote mood stability, combat distorted thoughts, and improve daily functioning. ?? Narrative Note: []
--- NOTE | 2023-01-05 11:29 | BH.MDN_ITS ---
Multi-Disciplinary Note Note 45-min Individual: Time Started:: 10:15 Date: 01/05/23 Purpose of session/treatment goals addressed:: Used the session to provide education on differences between [facility] vs [facility]. Reviewed progress and current symptoms. Treatment plan and goals setting for [facility] level of care. Eye Contact:: Good Motor Activity:: Restless Appearance:: Casual Speech:: Appropriate Mood:: Depressed Affect:: Congruent Thoughts:: Linear, Logical and No evidence of hallucinations/delusions noted Staff Interventions:: CBT techniques, treatment planning and other (Mistaken Beliefs, Affirmation examples and creation. ) Client Response:: Today was pt's first day in [facility] and we briefly discussed the daily milieu of [facility], frequency of individual counseling, and overall differences between [facility] and [facility]. Briefly reviewed progress made in [facility] and current symptoms. Pt reports that he continues to have daily thoughts of . Thoughts are mainly passive and include survival ambivalence, however occasional suicidal ideations. Denies any plan or intent. Self reports decrease in frequency, severity, and duration of these passive thoughts of and fleeting SI. We reviewed his safety/crisis plan which was developed during recent inpatient hospitalization and in [facility]. Pt can verbalize the plan which involves identifying warning signs/thoughts which indicate warning signs to decompensation, external coping skills (distraction, music, changing behaviors, playing video games, etc.), internal coping skills (CBT, thought reframing, etc.), support that he can speak with () and then crisis numbers to call if those strategies are not effective. I have to pay attention to how I feel. Pt would like to continue to work on CBT techniques and mistaken beliefs in [facility] level of care. Risks/Concerns:: Denies active SI, plan, or intent. Passive thoughts of Progress Toward Goals/Plan:: Progress noted which led to stepping down to [facility] level of care today. Crisis plan completed and reviewed. Pt self-reports decrease in severity, intensity, and duration of fleeting SI, depression, and anxiety. Increased energy and motivation. More hopeful. Currently taking action on stressors (foreclosure) rather than being passive and giving up on it. Maintaining thought log. Significant improvement since psychiatric hospitalization on 12/13/22, however symptom tracker still indicate high levels of depression and anxiety daily. Passive thoughts of are still there however again decreased in severity. Plan is to remain in IOP to prevent decompensation/re-admission, maintain safety, and to improve functioning. Time Stopped:: 11:00
--- NOTE | 2023-01-05 13:56 | BH.MTP ---
Master Treatment Plan Patient Information Program Physician:: Leonor Araujo Primary Therapist:: Boogie Molina Psychiatric Diagnoses Psychiatric Diagnoses:: 1. Major depressive disorder, recurrent, severe without psychosis 2. Anxiety disorder, unspecified (F41.9) 3. PTSD 4. Alcohol and opiate use disorders, in remission for 10 years 5. Chronic pain Diagnosis Code(s):: F33.2, F41.9 Estimated LOS Estimated LOS (in weeks):: 6 Problem/Goal #1 Problem/Goal #1 Stated Goal:: Client will reduce depressive symptoms including hopelessness, worthlessness, and passive thoughts of AEB by self-report and reduction in scores on the DSM-5 depression and suicidal ideation domains. Description of Barriers: Chronic pain, significant psychosocial stressors, limited progress from traditional outpatient interventions, treatment resistant depression. Functional Impact: Mental health symptoms impacting overall functioning at home and socially. Along with physical pain mental health impacting ability to maintain employment. Goal Relevant Strengths/Supports: Intelligent, motivated, insight into his mental health struggles and obstacles Objectives Objective #1: Stated Objective: Client will identify 2 triggers and 2 coping skills to use in increased times of depression. AEB self-reports and reduction of outcome scores on the depression and suicidal ideation domains. Interventions: Through individual and group counseling will teach client various coping skills to manage symptoms and give tangible resources, handouts, and worksheets to use to regulate emotions. Therapist will use cognitive restructuring techniques, follow up on pt's thought log and help client gain awareness of negative thoughts that reinforce depressive cycles. Discharge Criteria: Able too identify triggers to overwhelming negative thoughts and develop a strategies to manage depressive triggers. Target Date: 02/18/23 Review Date: 01/21/23 Objective #2: Stated Objective: Client will identify at least 2-3 negative self-talk messages used to reinforce negative core beliefs and low self-worth and replace thoughts with more realistic messages. Interventions: Through individual and group counseling will continue to provide education on mistaken beliefs, CBT concepts, cognitive distortions and teach client the connection between thoughts, emotions, and feelings. Therapist will assist client in identifying, challenging, and replacing dysfunctional thoughts with positive, more realistic thoughts. This goals is a continuation of [facility] goal Discharge Criteria: Start a though log. Identify 3 mistaken beliefs and cognitive distortions. Target Date: 02/18/23 Review Date: 01/21/23 Problem/Goal #2 Problem/Goal #2 Stated Goal:: Client will increase emotional regulation and reduce intensity and duration of anxiety symptoms AEB reduction on anxiety domain of outcomes as well as self-report Description of Barriers: Chronic pain, significant psychosocial stressors, limited progress from traditional outpatient interventions, Functional Impact: Mental health symptoms impacting overall functioning at home and socially. Along with physical pain mental health impacting ability to maintain employment. Goal Relevant Strengths/Supports: Intelligent, motivated, insight into his mental health struggles and obstacles Objectives Objective #1: Stated Objective: Client will identify 2-3 cognitive distortions that lead to rumination, learned helplessness, and panic and learn 2-3 ways to manage these thoughts to better manage anxiety as shown by reduced DSM-5 scores for anxiety Interventions: Through individual and group will provide education on the most common cognitive distortions and teach client the connection between thoughts, emotions, and feelings. Therapist will assist client in identifying, challenging, and replacing dysfunctional thoughts with positive, more realistic thoughts. Provided education on learned helpless and develop strategies to manage. Target Date: 02/18/23 Review Date: 01/21/23
--- NOTE | 2023-01-05 15:02 | BH.MDN ---
Multi-Disciplinary Note Note 45-min Individual: Time Started:: 11:15 Date: 01/05/23
--- NOTE | 2023-01-07 09:25 | BH.COMM ---
Communication Note Communication with Client Communication Note: Pt called off this AM due to illness. Scheduled to meet with program psychiatrist.
--- NOTE | 2023-01-09 09:00 | BH.SGPN.GN ---
Behaviors/Verbalizations/Mental Status: [] Eye contact is good. Motor activity is appropriate. Appearance is casual. Speech is Appropriate. Mood is depressed. Affect is congruent. Thoughts are linear and logical. No evidence of psychosis. Reviewed daily check in sheet and no reports of suicidal thoughts. Client Response/Progress/Benefit: [] Pt participated at times during the group discussion. Attentive. Emotion for today is distant ... not here. When asked about wins pt states no wins this week. Daily symptom tracker notes 3/5 for depression and 4/5 for anxiety/irritability. Currently experiencing stress and change related to looming foreclosure of his house as they are 4 months being on the mortgage. Pt and family recently decided to sell the house in an attempt to re-coup money and are currently working to prepare the house for sale. He does not elaborate during process group which has been typical. Unclear on progress as pt did not elaborate much. Benefited from group support, encouragement, and feedback. Will continue in IOP to maintain safety, stablzie mood, and improve functioning. Narrative Note: []
--- NOTE | 2023-01-09 10:10 | BH.SGPN.GN ---
Behaviors/Verbalizations/Mental Status: []Client alert and oriented, casually dressed and groomed. Eye contact fair. Motor activity appropriate. Speech within normal limits. Affect constricted, mood dysthymic. Thoughts linear, logical, no signs of hallucinations or delusions. Client Response/Progress/Benefit: []Client receptive to session AEB providing input throughout, listening attentively to others, and taking notes. Attentive throughout psychoeducation on the cognitive triangle and maintenance cycles. Engaged in group discussion reviewing the impact of daily activities and behaviors in either reinforcing unhealthy maintenance cycles and depression or assisting in reducing symptoms (?down? vs ?up? activities). Client identified common ?down? activities they engage in as: staying in bed, isolation, not talking, and not cleaning/doing chores. Common ?Up? activities client identified included: going outside, gardening, wood carving, music, and hiking. Appeared to benefit from increased awareness of current behaviors and impact these have on mental health. Recommended to continue IOP tx to continue use of healthy coping, challenge distortions, and prevent decompensation.
--- NOTE | 2023-01-09 14:28 | BH.MDN_ITS ---
Multi-Disciplinary Note Note 45-min Individual: Time Started:: 11:05 Date: 01/09/23 Purpose of session/treatment goals addressed:: Used the session to identify treatment goals for IOP level of care. Eye Contact:: Good Motor Activity:: Restless (moves around a lot in chair due to pain) Appearance:: Casual Speech:: Appropriate Mood:: Depressed Affect:: Congruent Thoughts:: Linear, Logical and No evidence of hallucinations/delusions noted Staff Interventions:: CBT techniques, treatment planning and other (mistaken beliefs, emotional triggers) Client Response:: Pt reports feeling distant today. Nervous. Ruminations and fear regarding finding a place to live. Family continues to prepare their house to be sold and they have completed an application with local housing authority for a home to rent. He remains unsure when the bank will foreclose on them stating I hoping they will give me at least 30 days notice. Emphasized that compared to last week he has a plan and is actively engaged in problem- solving rather than being passive and ignoring the looming foreclosure. He continues to journal and is medication compliant. Pt discussed his previous mental health breakdowns which occurred at his previous job and just prior to his admission. During both occasions reports being overwhelmed and unable to even move due to his thoughts. My mind just took over and I was spiraling out of control. We processed his thoughts and pt had insight that the trigger to both events was the overwhelming thoughts that he is a failure and cannot provide for his family. States that most thoughts get me sad and depression however I can usually control them however these were intense and had significant trouble controlling them. Theses tie into his mistaken belief of that he must be perfect and its not okay to make mistakes. We challenged these beliefs and identified the many ways to he provides for his family. Risks/Concerns:: Denies denies any active suicidal ideations, plan, or in tent. Scores on his daily tracker showed decrease from last week and no passive thoughts of . Progress Toward Goals/Plan:: Progress noted per pt report. States that he is utilizing skills and has noticed slight decreased in depression. Baseline has been daily passive thoughts of and survival ambivalence, however denies any yesterday or today. We discussed history of anxiety and panic attacks which appear to mainly occur in social situations. Pt states he simply avoids these situations. Anxiety does prevent him from activities however reports that he would like to mainly focus on his depression during IOP. We identify triggering thoughts to SI and significant depression with plan to work on trigger management plan which will include realistic affirmations, thought-reframing skills, and reminders of his success/family/ and his ability to provide. Will continue in IOP level of care to maintain safety, prevent decompensation/re-admission, and to increase healthy coping. Time Stopped:: 11:50
--- NOTE | 2023-01-12 09:00 | BH.SGPN.GN ---
Behaviors/Verbalizations/Mental Status: []Pt alert and oriented, neatly dressed and groomed. Eye contact good. Motor activity appropriate. Speech within normal limits. Affect flat, mood depressed. Thoughts linear, logical, no signs of hallucinations or delusions. Reviewed pt?s symptom tracker, no risk for suicidal ideation, plan, or intent as 01/12/23 Client Response/Progress/Benefit: []Pt was engaged by listening to peers and nodding. However, pt declined to check-in today with his mood, mental health wins, and stressor. Pt will continue to be encouraged to check-in in future sessions as this could hinder progress. Pt still appeared to benefit from connecting with peers instead of isolating. Pt will continue IOP tx to prevent decompensation, promote use of healthy coping skills, and increase self-confidence. Narrative Note: []
--- NOTE | 2023-01-12 10:15 | BH.SGPN.GN ---
Behaviors/Verbalizations/Mental Status: [] Eye contact is good. Motor activity is restless. Appearance is casual. Speech is Appropriate. Mood is depressed. Affect is flat. Thoughts are linear and logical. No evidence of psychosis. Client Response/Progress/Benefit: [] Limited participation in group discussions however did complete worksheets on the topic. Attentive during psychoeducation. Attentive during interactive discussion on types of support. Group identified several forms of support which included; friends, family, therapy, professionals, support groups, co-workers, social media, spirituality, medications, local agencies, etc. Pt Attentive during the group discussion on the importance of support which they identified leads to; accountability, can motivate, decreased loneliness, connection with others, improved relationships, increased self-confidence, can lessen one's stress and responsibilities, and is fun/ distracting. Patient identified the obstacles/barriers to seeking support and utilizing the support they currently have in place which included fear of overuse, not trusting others, not completing self-care, limited insight. Benefited from increased awareness of healthy supports and the importance of balanced support. Will continue in IOP to prevent decompensation/re-admission, maintain safety,, stabilize mood, and improve functioning. Narrative Note: []
--- NOTE | 2023-01-12 11:15 | BH.SGPN.GN ---
Behaviors/Verbalizations/Mental Status: []Client alert and oriented, casually dressed and groomed. Eye contact good. Motor activity appropriate. Speech within normal limits. Affect congruent, mood dysthymic and agitated. Thoughts linear, logical, no signs of hallucinations or delusions. Client Response/Progress/Benefit: [] Client was a semi-active participant throughout AEB contributing some to group discussion, participating in the activity, and taking notes. Client provided input during discussion on the types of support our supports can provide (social, emotional, tangible, and informational). Able to identify the types of support pt?s own support system provides for them. Client reported gaining awareness that they could benefit from more informational specific support. Shared this will help to provide him with gaining more information on healthy coping and grounding skills to then improve his anxiety and pain management as well. Client identified steps to achieve this as continue with IOP tx, research skills for grounding, as well as spend more time learning about himself. Client seemed to benefit from identifying support areas client could benefit from improving. Recommended to continue IOP tx to increase healthy coping repertoire, promote mood stability, and improve overall functioning. Narrative Note: []
--- NOTE | 2023-01-12 13:43 | BH.MDN_ITS ---
Multi-Disciplinary Note Note 30-min Individual: Time Started:: 12:15 Date: 01/12/23 Purpose of session/treatment goals addressed:: Reviewed current symptoms and progress in IOP. Used the session to address treatment plan goal 1. Eye Contact:: Good Motor Activity:: Restless Appearance:: Casual Speech:: Appropriate Mood:: Irritable and Depressed Affect:: Congruent Thoughts:: Linear, Logical and No evidence of hallucinations/delusions noted Staff Interventions:: taught coping skills (grounding skills, affirmations) Client Response:: Pt reports sleep disruptions over the weekend. According to pt her wakes up every 2-3 hours throughout the night and never obtained rested sleep. This impacts him throughout the day causing him to dowse off or take naps. According to patient he has always had issues with restful sleep due in large part to his back pain, however his mental health, anxiety, and ruminations are also contributors. We briefly reviewed his sleep routine. He does not wind down in the evening and reports working in the garage or outside till he can't keep his eyes open then showers and goes to bed. Keeping active throughout the day is important to minimize his pain I'd love to sit and watch TV but I can't. His back pain is a significant contributor to his poor sleep, lack of work, and mental health. I've tried everything regarding pain management and no relief. This resulted in increased depression and restlessness over the weekend. Reports difficulty staying on task. Insight that uncertainty about his house and the future are contributors. Life is going through significant changes (Selling the house). We began to discuss depression triggers and therapist provided pt with a handout of 30 grounding techniques and affirmation (pertaining to fear of failure) for pt to utilize when triggered. We discussed practicing these skills. Risks/Concerns:: Pt continues to report passive thoughts of and survival ambivalence. When asked about ideations, plan, or intent pt states Oh No! Does not present as imminent danger due to no ideations, plan, or intent. Protective factors, Future-oriented. Progress Toward Goals/Plan:: Pt remains consistent with IOP. Limited engagement today, which may be due to poor sleep and pain this AM. States I always feel better when I come here. Lack of purpose and goals when not at tending IOP. Therapist continues to work with patient on cognitive distortions, mistaken beliefs, and healthy coping skills. Introduced new grounding skills and specific affirmations to utilize as well. Will continue with IOP to maintain safety, prevent decompensation/re-admission, and to increase healthy coping skills. Time Stopped:: 12:45
--- NOTE | 2023-01-14 09:00 | BH.SGPN.GN ---
Behaviors/Verbalizations/Mental Status: []Pt alert and oriented, casually dressed and groomed. Eye contact good. Motor activity appropriate, at times restless/tipping back in his chair. Speech within normal limits. Affect congruent, mood euthymic. Thoughts linear, logical, no signs of hallucinations or delusions. Reviewed pt?s symptom tracker, no report of suicidal ideation, plan, or active intent as of 01/14/23 Client Response/Progress/Benefit: []Pt attentive during session and actively listening to peers AEB nodding throughout discussion. Pt however declined to share with the group and noted ?I don?t have anything to say?. Did not respond to gentle challenging however was willing to share his emotion for the day as ?good?. . Pt appeared to benefit from group support and listening as fellow participants were reflecting on mental health wins. Pt will continue IOP tx to promote mood stability, reduce maladaptive thought patterns, and increase consistent use of behavior activation skills. Narrative Note: []
--- NOTE | 2023-01-14 10:47 | PCM.BH.PSYEV ---
Psychiatric Evaluation Initial Evaluation Initial Evaluation: History of Present Illness/Interim History: The patient is a 37-year-old , male with a history of depression, anxiety, PTSD, alcohol and opiate use disorder in remission for 10 years who is seen in follow-up at the [facility] behavioral health IOP program. I last saw the patient 2 weeks ago and he recently has been stepdown from [facility] to the IOP program. He has been consistently attending the program according to the staff and is engaged in the program and learning valuable skills to deal with his mental health issues. Bryce blood work had been ordered but the patient states that he forgot to get it but he says that he will get it in the next few days. Patient's sleep remains about 6 hours a night but he wakes up now about every 3-4 hours which is an improvement over his prior waking up every 2 hours. Most the time he wakes up its due to pain but he says that this is an improvement for him. He feels tired during the day and sometimes takes naps during the day. His mood he feels is better since increasing the Remeron 2 weeks ago. He is still depressed but less than before. He has only had 1 panic attack in the last 10 days. He now denies hopelessness, worthlessness and guilt. He still has mild anhedonia and is still having panic attacks on occasion but less than before. He still has passive thoughts that he would not care if he if he has to be in pain but he is having less of these than before. He now denies any passive suicidal ideation since about 4 days ago. He also denies plan for suicide, active suicidal ideation, homicidal ideation, hallucinations or delusions. He is sober still from alcohol and opiates for 10 years. He is still using edible marijuana daily for pain relief through his medical marijuana card. Current Psychiatric Medications: [] Bryce carbonate ER 300 mg p.o. nightly (patient had bad side effects on 600 mg while he was in the hospital); Vraylar 3 mg p.o. daily (x5 weeks now); Viibryd 40 mg p.o. daily (x5 weeks); Remeron 30 mg p.o. nightly (increased 2 weeks ago); prazosin 4 mg p.o. nightly; gabapentin 100 mg p.o. twice daily (added 2 weeks ago by his outpatient provider). Mental Status Examination: [] The patient is a 37-year-old male who is casually dressed and groomed with good hygiene and appears normal for stated age. He is ambulatory with a normal gait and has no psychomotor agitation or retardation. Eye contact is good and speech is normal rate and rhythm and fluent with no pressure. Mood is depressed. Affect is mildly constricted but much brighter than before. Thought process is organized and goal-directed. Thought content: There is still evidence of passive thoughts of . There is no evidence of passive or active suicidal ideation, plan for suicide, homicidal ideation, hallucinations or delusions. Patient is more hopeful for the future. Reality testing is intact. Judgment is intact. Insight is fair and improving. Impulsivity is moderate. Diagnoses: [] 1. Major depressive disorder, recurrent, severe without psychosis 2. Anxiety disorder, unspecified (F41.9) 3. PTSD 4. Alcohol and opiate use disorders, in remission for 10 years 5. Chronic pain 6. Work and financial issues Plan: [] The patient will continue the IOP program and will be downgraded to IOP at the [facility] as the structure, support, education and group therapy will hopefully prevent worsening of the patient's symptoms which could require rehospitalization. He felt safe during the interview and if it anytime he does not feel safe he will let us know or go to the emergency room. The risks, options, possible complications and side effects of the medications were again discussed with the patient and he understands and accepts these. The patient agrees to now get his blood work for lithium since he forgot to that after last visit. No medication changes were made today. He will continue to follow-up with his outpatient providers and I will see the patient in follow-up in 1 to 2 weeks.
--- NOTE | 2023-01-14 11:10 | BH.SGPN.GN ---
Behaviors/Verbalizations/Mental Status: [] Eye contact is good. Motor activity is appropriate. Appearance is casual. Speech is Appropriate. Mood is depressed/irritable. Affect is congruent. Thoughts are linear and logical. No evidence of psychosis. Client Response/Progress/Benefit: [] Pt participated at times during group discussions. Participated in experiential activity. Attentive during psychoeducation. Attentive during interactive discussion on strategies to overcome several obstacles to mental wellness including People-pleasing, Low Self-esteem, unhealthy coping skills, isolation, loneliness, and negative thinking. Pt choose the barrier of negative thinking to work on this week and identified strategies to incorporate including thought challenging and thought log. Benefited from increased awareness of obstacles to mental wellness and strategies to help overcome those obstacles. Will continue in IOP to prevent decompensation re-admission, maintain safety, and to increase healthy coping. Narrative Note: []
--- NOTE | 2023-01-14 12:13 | BH.DR.ITP ---
Initial Treatment Plan Patient Information Visit Information: ADMISSION DATE: EXPECTED LOS: 4-6 weeks Problems/Symptoms Problem #1:: Depression Symptom:: Sadness, hopelessness, guilt, anhedonia, passive thoughts of , passive suicidal ideation Problem #2:: Anxiety Symptom:: Worry, rumination, panic attacks, flashbacks, nightmares, avoidance
--- NOTE | 2023-01-15 10:10 | BH.SGPN.GN ---
Behaviors/Verbalizations/Mental Status: [] Eye contact is good. Motor activity is appropriate. Appearance is casual. Speech is Appropriate. Mood is irritable. Affect is constricted. Thoughts are linear and logical. No evidence of psychosis. Client Response/Progress/Benefit: []Pt engaged participant AEB listening to others, engaging in activity, and providing feedback at times. Attentive during psychoeducation and provided insight into obstacles in the way of mental wellness. Pt shared with group current mental health reality and desired mental health reality. Stated coming to therapy as one step he is currently making to get closer to desired reality. Identified barriers to desired reality include: poor boundaries, self-sabotage, and low self-esteem. Benefited from taking look at current mental health state and obstacles for progress. Pt to continue IOP to challenge negative thoughts, increase healthy coping, and prevent decompensation.
--- NOTE | 2023-01-16 09:54 | BH.MDN ---
Multi-Disciplinary Note Note 30-min Individual: Time Started:: 09:00 Date: 01/16/23 Purpose of session/treatment goals addressed:: Reviewed current symptoms and progress in IOP. Addressed treatment plan goals 1 and 2. Eye Contact:: Good Motor Activity:: Restless Appearance:: Casual Speech:: Appropriate Mood:: Euthymic Affect:: Congruent Thoughts:: Linear, Logical and No evidence of hallucinations/delusions noted Staff Interventions:: CBT techniques and mindfulness skills (Grounding skills) Client Response:: Pt shared that his insurance approved ECT treatments which are scheduled to start next week. According to pt he will receive his treatment 3x weekly for 4-6 weeks. We discussed how this could impact IOP level of care and had a discussion. We are agreeable to reducing the IOP to twice weekly so he can attend his ECT treatments. There is concern for decompensation or exacerbation of symptoms without continued support and treatment from IOP during ECT. Will evaluate this weekly as pt moves forward with IOP and ECT. The referral for ECT occurred before his inpatient admission and admission to [facility]. Used the session to review grounding techniques worksheet and affirmations to challenge mistaken beliefs. Risks/Concerns:: No risks or concerns noted. Pt reports Denies active suicidal ideation, plan, or intent. Continue to report passive thoughts of and survival ambivalence however states I only have 1-2 thoughts per day which is significant reduction. Progress Toward Goals/Plan:: Progress noted per pt report. Consistent and engage in IOP. I'm better. Currently identifying and challenging cognitive distortions, maintaining thought log, taking action on stressors rather than simply analyzing and ruminating. Reports feeling more in control over outside circumstances and less powerless. Responding well to IOP. Pt does continue to reports daily passive SI, depression, ruminations, anxiety, and irritability. Significant physical pain which also impacts independence, functioning, and mental wellness. Will continue in IOP to prevent decompensation/re-admission, increase healthy coping, and maintain safety. Time Stopped:: 09:30
--- NOTE | 2023-01-16 10:10 | BH.SGPN.GN ---
Behaviors/Verbalizations/Mental Status: []Pt alert and oriented, casually dressed and groomed. Eye contact good. Motor activity appropriate. Speech within normal limits. Affect congruent, mood calm. Thoughts linear, logical, no signs of hallucinations or delusions. Client Response/Progress/Benefit: []Pt receptive of session, actively engaged throughout AEB taking notes and listening to discussion. Appeared to connect with group topic of cognitive distortions and the impact of thought patterns on mental health, coping behaviors, and relationships. Pt reports connecting with distortions of disqualifying the positives. Connected with peers about difficulty of accepting compliments. Able to connect impact distortions has on mental health. Pt appeared to benefit from gaining insight on distorted thinking patterns and how this impacts overall mental health. Will continue IOP tx to improve self-esteem, challenge negative thinking, and prevent decompensation.
--- NOTE | 2023-01-16 11:10 | BH.SGPN.GN ---
Behaviors/Verbalizations/Mental Status: [] Eye contact is good. Motor activity is appropriate. Appearance is casual. Speech is Appropriate. Mood is euthymic. Affect is full. Thoughts are linear and logical. No evidence of psychosis. Client Response/Progress/Benefit: [] Pt was an active participant during group discussions and activity. Pt was placed in a smaller group and participated in quiz-show format in which small groups competed against each-other to answer questions based on identifying, challenging, and reframing cognitive distortions. Pt was engaged in her smaller group, participated in group interactions to brainstorm answers, and appeared to be comprehending cognitive distortions. . Benefited from gaining further insight and awareness of cognitive distortions as well as practicing ways to reframe and challenge thoughts. Will continue in IOP to maintain safety, prevent decompensation/re-admission, increase healthy coping skills, and improve functioning Narrative Note: []
--- NOTE | 2023-01-20 09:00 | BH.SGPN.GN ---
Behaviors/Verbalizations/Mental Status: [] Eye contact is good. Motor activity is appropriate. Appearance is casual. Speech is Appropriate. Mood is depressed. Affect is congruent. Thoughts are linear and logical. No evidence of psychosis. Reviewed daily check in sheet and no reports of suicidal ideations or intent. Client Response/Progress/Benefit: [] Pt participated at times during the group discussion. Attentive. Daily symptom tracker notes 3/5 for depression and 2/5 for anxiety/irritability. Pt's check in was very short and superficial. Reports self-care and coming to terms with selling his house. He shared that its just a house and then elaborated that his home is wherever his and family are. In the recent past his perspective and attachment to keeping the house and its importance were more intense. Letting go and accepting the changes appears to have been beneficial to his mental health. Progress noted per pt report. Benefited from group support, encouragement, and feedback. Will continue in IOP to maintain safety, prevent decompensation/re-admission, and to improve functioning. Narrative Note: []
--- NOTE | 2023-01-20 10:10 | BH.SGPN.GN ---
Behaviors/Verbalizations/Mental Status: []Eye contact is good. Motor activity is appropriate. Appearance is casual. Speech is Appropriate. Mood is anxious. Affect is congruent. Thoughts are linear and logical. No evidence of psychosis. Client Response/Progress/Benefit: []Pt was an active participant in group discussions. Engaged and provided feedback along with peers on defining anxiety. Along with peers, pt worked to identify the benefits of anxiety. Participated during interactive discussion on how anxiety impacts one physically, cognitively, and behaviorally. Completed worksheet on how anxiety impacts pt physically, cognitively, and behaviorally. Pt shared physically pt experiences shaking, increased heart rate, and hyperventilating. Benefited from increased insight into anxiety's benefits and how diagnosable anxiety impacts functioning. Will continue in IOP tx to improve daily functioning, reduce negative thinking patterns, and improve mood stability. Narrative Note: []
--- NOTE | 2023-01-20 11:10 | BH.SGPN.GN ---
Behaviors/Verbalizations/Mental Status: []Pt alert and oriented, casually dressed and groomed. Eye contact good. Motor activity appropriate. Speech within normal limits. Affect constricted. mood euthymic. Thoughts linear, logical, no signs of hallucinations or delusions. Client Response/Progress/Benefit: []Pt was an active participant in group discussion AEB providing contributions throughout group and listening attentively to others. Attentive during psychoeducation on mindfulness and ways to utilize mindfulness techniques to improve anxiety management. The group practiced deep breathing and the 5-senses during session. Engaged and attentive during group brainstorm of healthy anxiety reduction skills including thought challenging and behavioral changes. Appeared to benefit from practicing in the moment coping skills and increasing repertoire of anxiety management skills. Pt selected wanting to work on practicing meditation to improve ability to mange anxiety and increase relaxation. Pt will continue IOP tx to continue use of healthy coping skills, build confidence, and prevent decompensation.
--- NOTE | 2023-01-21 07:51 | BH.TPR ---
Treatment Plan Review Demographics Date of Treatment Plan Review:: 01/21/23 Admitting Diagnoses:: 1. Major depressive disorder, recurrent, severe without psychosis 2. Anxiety disorder, unspecified (F41.9) 3. PTSD 4. Alcohol and opiate use disorders, in remission for 10 years Current Diagnoses:: 1. Major depressive disorder, recurrent, severe without psychosis 2. Anxiety disorder, unspecified (F41.9) 3. PTSD 4. Alcohol and opiate use disorders, in remission for 10 years Patient Status Patient's Response to Treatment:: Consistent attendance. Attentive during groups however generally is on the quiet side. He reports that coming to IOP has been very helpful. Responding well to group psychoeducation, group support, and individual counseling. Status of Current Problems and Symptoms: According to DSM-5 outcomes scores pt had a 54% reduction in symptoms since admission. Outcome measurement indicates a 37% reduction in depression domain, 25% reduction in the anger domain, 42% reduction in the anxiety domain, and 100% reduction in the SI domain (indicated no active SI in the past 2 weeks). Outcomes also indicate improvement in sleep and memory. Outcomes show a 60% reduction in repetitive thoughts/behaviors and a 75% reduction in the dissociation domain. Consistent and engage in IOP. According to pt I'm better. Currently identifying and challenging cognitive distortions, maintaining thought log, taking action on stressors rather than simply analyzing and ruminating. Reports feeling more in control over outside circumstances and less powerlessness. Responding well to IOP. Pt does continue to reports daily passive SI/survival ambivalence, depression, ruminations, anxiety, and irritability. Significant physical pain which also impacts independence, functioning, and mental wellness. Will continue in IOP to prevent decompensation/re-admission, increase healthy coping, and maintain safety. Progress Problem #1: Problem Name:: Depression Status of Goals:: Obj 1- On going. Pt is able to identify triggers and coping skills, however would benefit from learning additional skills and to use skills consistently. Obj 2- Ongoing. Is able to identify mistaken beliefs and negative self-talk messages. Has a list of affirmations and boiler plate challenges to these messages however struggles with identify his own. Team Recommendations:: Continue with current treatment plan. Based on outcomes results pt has been responding well to CBT techniques. Problem #2: Problem Name:: Anxiety Status of Goals:: Obj 1- Ongoing. Pt recently completed cognitive distortions group and has been utilizing a thought log. Team Recommendations:: Continue with current treatment plan. Based on on outcomes pt anxiety's has reduced since entering [facility].
--- NOTE | 2023-01-23 09:00 | BH.SGPN.GN ---
Behaviors/Verbalizations/Mental Status: [] Eye contact is good. Motor activity is appropriate. Appearance is casual. Speech is Appropriate. Mood is depressed/irritable. Affect is congruent. Thoughts are linear and logical. No evidence of psychosis. Reviewed daily check in sheet and no reports of suicidal ideations or intent. Client Response/Progress/Benefit: [] Pt was an active participant in group discussion. Attentive. Emotion for today is blah. Shared with the group my disability got denied. Pt applied for disability due to medical complications related to his back. He was upset that he was denied however states I was expecting it. Also reported that we decided to also file for bankruptcy. He states that these stressors were significant and briefly discussed how this impacts his mental health. He choose to utilize the weekend with his family camping on his parents property. Noted that getting away from technology and stressors was helpful for him to realize blessings that he has in his life. Progress noted amongst the psychosocial stressors as he was able to utilize CBT techniques to manage thoughts and emotions. Will continue in IOP to maintain safety, stabilize mood, and increase healthy coping. Narrative Note: []
--- NOTE | 2023-01-23 11:15 | BH.SGPN.GN ---
Behaviors/Verbalizations/Mental Status: []Pt alert and oriented, casually dressed and groomed. Eye contact good. Motor activity appropriate. Speech within normal limits. Affect congruent, mood dysthymic. Thoughts linear, logical, no signs of hallucinations or delusions. Client Response/Progress/Benefit: []Pt remained an active participant AEB providing contributions to group discussion, listening attentively to others, and engagement in small group discussion. Pt attentive during psychoeducation on the different boundary styles. Pt did well to work within the small group on identifying strategies for establishing and maintaining healthy boundaries. Pt identified wanting to work on improving his emotional boundaries by taking steps to reduce people pleasing behaviors and practice saying ?no?. Appeared to benefit from increased awareness of boundary styles and strategies to improve setting boundaries. Will continue IOP tx to increase consistent use of healthy coping skills, challenge distortions, and prevent decompensation. Narrative Note: []
--- NOTE | 2023-01-23 11:48 | BH.MDN ---
Multi-Disciplinary Note Note 45-min Individual: Time Started:: 10:15 Date: 01/23/23 Purpose of session/treatment goals addressed:: Used the session to review 4 week outcomes and progress on treatment plan goals. Eye Contact:: Good Motor Activity:: Appropriate Appearance:: Casual Speech:: Appropriate Mood:: Anxious Affect:: Congruent Thoughts:: Linear, Logical and No evidence of hallucinations/delusions noted Staff Interventions:: treatment planning and reviewed DSM-5 Client Response:: Pt learned this week that he was denied for SSDI and believes it may take another year to appeal. Also reports that pt and decided that filing for bankruptcy would be the most beneficial course of action for their future. Financial stress continues to be a significant stressor, however pt continues to actively seek solutions and options rather that give up or shut down. Acceptance that it would be best to reach out to SSDI and Bankruptcy water well driller to help manage the processes. I'm going to make some calls today. We reviewed his DSM-5 outcomes, his progress with identifying and challenging cognitive distortions, and his overall progress in IOP. Risks/Concerns:: No risks or concerns noted. Daily symptom tracker indicated no suicidal ideations. Progress Toward Goals/Plan:: Progress noted per outcomes measurement and self-report. According to DSM-5 outcomes scores pt had a 54% reduction in symptoms since admission. Outcome measurement indicates a 37% reduction in depression domain, 25% reduction in the anger domain, 42% reduction in the anxiety domain, and 100% reduction in the SI domain (indicated no active SI in the past 2 weeks). Outcomes also indicate improvement in sleep and memory. Outcomes show a 60% reduction in repetitive thoughts/behaviors and a 75% reduction in the dissociation domain. Consistent and engaged in IOP. According to pt his progress is related to IOP being his purpose currently This is my job. Currently identifying and challenging cognitive distortions, maintaining thought log, taking action on stressors rather than simply analyzing and ruminating. Reports feeling more in control over outside circumstances and less powerlessness. Responding well to IOP. Pt does continue to reports daily passive thoughts of /survival ambivalence, depression, ruminations, anxiety, and irritability. Significant psychosocial stressors (finances) and physical pain which also impacts independence, functioning, and mental wellness. Will continue in IOP to prevent decompensation/re-admission, increase healthy coping, and maintain safety. Pt is set to start ECT next week. Plan is to discharge in 3 weeks if mood continues to be stable. Will follow up with current mental health outpatient provides and is interested in IOP aftercare group. Time Stopped:: 11:00
--- NOTE | 2023-01-27 09:00 | BH.SGPN.GN ---
Behaviors/Verbalizations/Mental Status: [] Pt alert and oriented, neatly dressed and groomed. Eye contact good. Motor activity appropriate. Speech within normal limits. Affect congruent, mood euthymic. Thoughts linear, logical, no signs of hallucinations or delusions. Reviewed pt?s symptom tracker, no risk for suicidal ideation, plan, or intent 01/27/23 Client Response/Progress/Benefit: []Pt responded well to session, attentive and engaged. Pt reports feeling calm this morning and shared he has no stressors. Pt started ECT tx yesterday and he stated he will not feel the effects for a few sessions, but he is hopeful. Pt shared he will go three times a week and that so far the treatment has just made him tired. Pt's other mental health win today is that he started the process of hiring a finish inspector to help pt get social security disability and pt is filing for bankruptcy. Pt appeared to benefit from reflecting on his wins and the steps pt is taking to reduce stress in his life. Pt will continue IOP tx to promote mood stability, further reduce negative thinking, and support pt during ECT. Narrative Note: []
--- NOTE | 2023-01-27 11:10 | BH.SGPN.GN ---
Behaviors/Verbalizations/Mental Status: []Pt alert and oriented, casually dressed and groomed. Eye contact good. Motor activity appropriate. Speech within normal limits. Affect congruent, mood euthymic. Thoughts linear, logical, no signs of hallucinations or delusions. Client Response/Progress/Benefit: []Pt responded well to session AEB contributing to discussion, taking notes, and listening attentively to others. Group discussed the benefits of managed anger and anger as a secondary emotion. Pt shared perspective on personal benefits of anger as emotion release. Pt completed worksheet on anger triggers and personal warning signs of anger. Pt identified their biggest triggers as pain, disrespect, and interactions with people he feels lack common sense. Appeared to benefit from increased knowledge of the anger cycle as well as personal triggers. Pt to continue IOP to promote healthy coping skill application, maintain mood stability, and prevent decompensation. Narrative Note: []
--- NOTE | 2023-01-27 11:10 | BH.SGPN.GN ---
Behaviors/Verbalizations/Mental Status: []Client alert and oriented, casually dressed and groomed. Eye contact fair. Motor activity appropriate. Speech within normal limits. Affect constricted, mood dysthymic. Thoughts linear, logical, no signs of hallucinations or delusions. Client Response/Progress/Benefit: []Pt was attentive throughout AEB contributing at times to small group discussion and self-reflection. Group finished processing cues to anger worksheet. Pt worked on completing own anger cycle. Shared one of his anger cycles is being triggered by pain which results in him thinking this the cards I have been dealt. Pt stated emotional response is rage and results in him behaviorally responded by criticizing others, yelling, and arguing. Pt attentive as group brainstormed healthy coping skills for better managing anger which included: music, walking/exercise, taking a break, grounding tools, reflection, and journaling. Pt worked in small groups to identify ways could interrupt his anger cycle. Pt appeared to benefit from identifying different techniques to manage anger as well as gaining awareness of potential consequences of unmanaged anger. Will continue IOP tx to challenge distorted thoughts, increase relaxation skills, and prevent deocmpenation.
--- NOTE | 2023-01-29 10:10 | BH.SGPN.GN ---
Behaviors/Verbalizations/Mental Status: []Pt alert and oriented, casually dressed and appearing disheveled/ungroomed. Eye contact good. Motor activity appropriate. Speech within normal limits. Affect congruent, mood euthymic. Thoughts linear, logical, no signs of hallucinations or delusions. Client Response/Progress/Benefit: []Pt was an active participant AEB providing input and was actively taking notes. Did well to participate and provide suggestions in group activity. Connected with the topic of pitfalls and listened to group discussion on internal and external barriers that prevent from choosing a healthier path to mental wellness. Group worked together to identify examples of personal internal pitfalls and pt identified his as people pleasing, denial, and avoidance. Pt benefited from group as Pt learned to better identify and normalize potential barriers to improving mental health symptoms. Pt will continue IOP tx to prevent decompensation, increase mood ?and pain management skills, and continue to promote healthy communication and boundary setting with supports. Narrative Note: [] Behaviors/Verbalizations/Mental Status: []Pt alert and oriented, casually dressed and appearing disheveled/ungroomed. Eye contact good. Motor activity appropriate. Speech within normal limits. Affect congruent, mood euthymic. Thoughts linear, logical, no signs of hallucinations or delusions. Client Response/Progress/Benefit: []Pt was an active participant AEB providing input and was actively taking notes. Did well to participate and provide suggestions in group activity. Connected with the topic of pitfalls and listened to group discussion on internal and external barriers that prevent from choosing a healthier path to mental wellness. Group worked together to identify examples of personal internal pitfalls and pt identified his as people pleasing, denial, and avoidance. Pt benefited from group as Pt learned to better identify and normalize potential barriers to improving mental health symptoms. Pt will continue IOP tx to prevent decompensation, increase mood ?and pain management skills, and continue to promote healthy communication and boundary setting with supports. Narrative Note: []
--- NOTE | 2023-01-29 12:00 | BH.MDN ---
Multi-Disciplinary Note Note 30-min Individual: Time Started:: 11:25 Date: 01/29/23 Purpose of session/treatment goals addressed:: Reviewed current symptom and progress in IOP. Addressed treatment plan goals 1 and 2. Eye Contact:: Good Motor Activity:: Appropriate Appearance:: Casual Speech:: Appropriate Mood:: Depressed Affect:: Congruent Thoughts:: Linear, Logical and No evidence of hallucinations/delusions noted Staff Interventions:: CBT techniques and discharge planning Client Response:: Pt started ECT this week. He is attending ECT 3 days a week and drive about an hour to [place] to get the procedure completed. He reports no noticeable change, however states I don't remember driving there, getting the procedure, or driving back. He states that he has also been extremely tired and lethargic. He has communicated these occurrences to his treating physician and they are common. Overall his mood has been stable stating I'm actually enjoying the increased sleep. He continues to utilized calming and coping strategies learned in IOP. Continues with thought log. Increased awareness and ability to identify cognitive distortions and mistaken beliefs which has helped reframe and challenge thoughts. Views his depression and mental health as manageable. Majority of the session was reviewing skills, assessing progress, and discussing discharge plans. Risks/Concerns:: no risks or concerns noted. Progress Toward Goals/Plan:: Progress noted. Responding well to IOP. Began ECT this week which has impacted his memory and caused increased lethargy. Will continue in IOP for the next 2 weeks along with ECT. Mood is stabilizing with decreased suicidal ideations and improved mood. Pt benefits from having purpose and motivation. He also reports benefits from group support. His has begun to journal and goal set more consistently which is also importance for him to maintain as he gets ready to discharge. Plan is to discharge in 2 weeks. He is linked with counseling and psychiatry with [facility]. Encouraged to reach out and set up appointments. We discussed aftercare group here and he is interested. Due to ECT he will only attend 2 days per week for the next 2 weeks. It would not be beneficial to his mental health and progress if IOP if discharged immediately due to ECT as it may lead to decompensation. Time Stopped:: 11:55
== END 2023-02-02 23:59 ==
LOC: BHIOP 08:00
PROVIDERS: PCP Nurse Practitioner Family; Referring Provider Psychiatry & Neurology Psychiatry; Visit Provider Psychiatry & Neurology Psychiatry
DX: F33.2 Major depressive disorder, recurrent severe without psychotic features (principal); F41.9 Anxiety disorder, unspecified; F43.10 Post-traumatic stress disorder, unspecified; F12.91 Cannabis use, unspecified, in remission; F10.91 Alcohol use, unspecified, in remission
CPT/HCPCS: S9480; 90832; 90834; 90853

== ENCOUNTER → 2023-01-29 | Outpatient (CLI) | payer OTHER, MEDICAID, SELFPAY ==
[2023-01-29 10:35] LABS: Albumin, Serum 3.7 g/dL (3.2-5.0); BUN 13 mg/dL (7-18); BUN/Creat Ratio 11.8 RATIO (10-20); Calcium,Total 9.2 mg/dL (8.5-10.1); Chloride 108 mmol/L (98-107); EST Glomerular Filtration Rate 80 mL/min (>60); Est Glom Filt Rate - Afr Amer 97 mL/min (>60); Glucose 101 mg/dL (74-106); Phosphorus 2.2 mg/dL (2.5-4.9); Potassium 3.8 mmol/L (3.5-5.1); Sodium Level 139 mmol/L (136-145); Thyroid Stim Hormone (TSH) 1.04 uIU/mL (0.358-3.74)
== END | disposition home or self-care (01) ==
PROVIDERS: PCP Family Medicine; Referring Provider Psychiatry & Neurology Psychiatry; Visit Provider Psychiatry & Neurology Psychiatry
DX: Z79.899 Other long term (current) drug therapy (principal)
CPT/HCPCS: 36415; 80069; 80178; 84443

== ENCOUNTER 2023-02-03 07:15 | Outpatient (RCR) | payer OTHER, MEDICAID, SELFPAY ==
--- NOTE | 2023-01-29 09:00 | BH.SGPN.GN ---
Behaviors/Verbalizations/Mental Status: [] Eye contact is good. Motor activity is appropriate. Appearance is casual. Speech is Appropriate. Mood is anxious. Affect is congruent. Thoughts are linear and logical. No evidence of psychosis. Reviewed daily check in sheet and pt reports 1/5 for passive thoughts of and 0/5 for intent. Client Response/Progress/Benefit: [] Participated when prompted. Attentive. Daily symptom tracker notes 3/5 for depression, anxiety, and irritability. Shared with the group that he continues with ECT. He shared his experiences with ECT among group members and discussed a little about the process of getting accepted to ECT and its reported benefits. Currently pt has not identified much benefit from his ECT. Reports ? being tired and sleeping a lot?. This appears to have negatively impacted his depression at least in the short term. Emotion for today is ?content? stating ? I?m good?. Some regression noted since starting ECT due to lethargy and decreased energy. Benefited from group support, encouragement, and feedback. Will continue in IOP to maintain safety, stabilize mood, and improve functioning. Narrative Note: []
--- NOTE | 2023-02-03 09:05 | BH.SGPN.GN ---
Behaviors/Verbalizations/Mental Status: [] Pt alert and oriented, neatly dressed and groomed. Eye contact good. Motor activity appropriate. Speech within normal limits. Affect flat, mood tired. Thoughts linear, logical, no signs of hallucinations or delusions. Reviewed pt?s symptom tracker, no risk for suicidal ideation, plan, or intent 02/03/23 Client Response/Progress/Benefit: []Pt responded well to session, attentive and engaged. Pt reports feeling tired this morning as pt continues to get ECT treatment that physically and mentally exhausts pt. Pt stated he is hoping the treatment works, but right now he is in the dark about what to expect. Pt shared he is not able to focus on other IOP goals right now due to fatigue, but pt acknowledges that he must be making progress because he is not getting worse.. Pt appeared to benefit from reflecting on the impact social support has on pt's wellbeing. Pt will continue IOP tx to promote mood stability, further improve self-confidence, and reduce negative thinking patterns. Narrative Note: []
--- NOTE | 2023-02-03 10:05 | BH.SGPN.GN ---
Behaviors/Verbalizations/Mental Status: [] Eye contact is good. Motor activity is appropriate. Appearance is casual. Speech is Appropriate. Mood is depressed. Affect is flat. Thoughts are linear and logical. No evidence of psychosis Client Response/Progress/Benefit: [] Pt participated at times during group discussions. Attentive during psychoeducation on 4 Communication Styles (Passive, Passive-Aggressive, Aggressive, Assertive). Convened in small group howqever limited interaction with peers during discussions on benefits and disadvantages of each communication style. Majority of this group was based in introducing and educating on communication styles. Pt choose not to share when asked about communication style he utilizes most often. Benefited from increased education and awareness on communication styles and their impact on relationships/mental health. Pt has struggles with engagment more since starting ECT. Will continue in IOP to prevent decompensation/Re-admission to psych unit, maintain safety, and increase healthy coping. Narrative Note: []
--- NOTE | 2023-02-03 11:10 | BH.SGPN.GN ---
Behaviors/Verbalizations/Mental Status: []Client alert and oriented, casually dressed and appropriately groomed. Eye contact fair. Motor activity appropriate. Speech WNL. Affect constricted, mood dysthymic. Thoughts linear, logical, no signs of hallucinations or delusions. Client Response/Progress/Benefit: []Client responded well to session AEB client listening attentively to others and providing input during group discussion on the pay offs and costs of the different communication styles. Client able to connect how current communication style impacts mental health. Client engaged in activity, used assertive communication throughout in order to accomplish task. Connected with peers comments about importance of using assertive communication. Client shared he struggles with asserting his needs. Reported he wants to work on being more precise about his needs. Client seemed to benefit from increasing awareness of healthy strategies to improve communication. Will continue IOP tx to increase confidence, challenge distorted thoughts, and prevent decomopensation.
--- NOTE | 2023-02-05 10:10 | BH.SGPN.GN ---
Behaviors/Verbalizations/Mental Status: [] Eye contact is good. Motor activity is appropriate. Appearance is casual. Speech is Appropriate. Mood is euthymic. Affect is congruent. Thoughts are linear and logical. No evidence of psychosis. Client Response/Progress/Benefit: [] Pt was an active participant in group discussion. Attentive during psychoeducation on Problem-Solving in the Moment Protocol. Participated in group experiential activity. Pt provided feedback during interactive group discussion in which pt and peers worked through an example of a problem (Managing Anxiety) in which they identified a goal (minimizing anxiety) and identified barriers. Barriers identified included fear, past experiences, lack of motivation, external obstacles, and stigma. During the experiential activity pt worked with peers to problem solve using the Problem Solving in the Moment Protocol. Group was able to complete the activity and pt was able to practice in the moment problem-solving and make connections between problem-solving for activity and in real-life situations. Increased awareness of problem-solving strategies. Will continue in IOP to continue use of healthy coping, challenge distorted thoughts, and prevent decompensation.
--- NOTE | 2023-02-05 10:31 | BH.MDN ---
Multi-Disciplinary Note Note 45-min Individual: Time Started:: 09:15 Date: 02/05/23 Purpose of session/treatment goals addressed:: Reviewed progress and current symptoms. Addressed treatment plan goals 1 and 2. Eye Contact:: Good Motor Activity:: Appropriate Appearance:: Disheveled Speech:: Appropriate Mood:: Depressed Affect:: Congruent Thoughts:: Linear, Logical and No evidence of hallucinations/delusions noted Staff Interventions:: thought challenging, CBT techniques, mindfulness skills and discharge planning Client Response:: Pt presents today reporting more fatigued than baseline. He continues with ECT 3x weekly which has led to increased lethargy, low energy, and limited motivation. This has led to increased time to think. Regression noted in the past week regarding depressive symptoms. It's nowhere near as bad as before I started here. Reports ruminations on why. Examples of thoughts include why is my life like this? .. why am I always struggling?. These thoughts can lead to passive thoughts of and survival ambivalence what is the point?, however denies any suicidal ideations, plan, or intent. Protective factors reported (family). Due to psychosocial stressors ([employer] denial, filing for bankruptcy) and increased lethargy (unable to participate in tinkering projects, lying around more, etc) depression regression noted. I know that ECT will work long-term however I'm not sure what it does Has numerous questions about the procedure, how it helps, and what it does. According to patient there are no staff at [facility] ECT program to speak with its like an assembly line. Encouraged him to advocate for himself. We reviewed skills learned in IOP. He discussed his coping strategies and plan to address negative thoughts and passive thoughts stating they aren't there for long. I've accepted that I'm struggling and that ruminating on why will never get my answers. Risks/Concerns:: refer above. No active SI, plan, or intent. Protective factors. Future-oriented (I know ECT will work). No hx of attempts. Progress Toward Goals/Plan:: Regression noted (refer above). He continues to get benefit from IOP the things I've learned here have been so helpful. Utilizing skills. He does have a safety plan which we have reviewed numerous times in session. He is able to verbalize it. Pt has long-standing treatment resistant depression (tried ketamine, medications, hospitalization, and counseling) with improvement noted in IOP, however recent regression. Due to significant psychosocial stressors and side effects of ECT (lethargy) his depression has increased this past week with increased ruminations. We talked about skills and ways to reset his thinking (mindfulness, camping with family, reading, etc.). Due to having ECT every Thursday he will not be able to meet with program psychiatrist for remainder of the program due to scheduling conflicts (Pt's ECT is Thursday morning and is lethargic/sleeping remainder of the day). He has follow up with outside psychiatrist and hopefully under care of psychiatrist while in ECT. Plan is to discharge next week. He has accomplished most treatment plan goals as he is able to identify triggers, coping skills, cognitive distortions, and has maintained a thought log. Increased skills at challenging and reframing thoughts, acceptance, and action-taking rather than avoidance. Strong support (family). Is linked with counseling and psychiatry at [place] [id number]. I reached out to his outpatient therapist this AM to discuss progress and discharge.
--- NOTE | 2023-02-05 11:10 | BH.SGPN.GN ---
Behaviors/Verbalizations/Mental Status: []Pt alert and oriented, casual dress, hygiene tended to. Eye contact good. Motor activity WNL. Speech appropriate rate and tone. Affect constricted, mood anxious and euthymic.? Thoughts linear, logical, no signs of hallucinations or delusions. Client Response/Progress/Benefit: []Pt engaged in session as evidenced by listening to others and providing input throughout. Pt completed problem solving example with group and identified a goal they want to work on. Goal identified as: improving overall self-talk. Pt?s barriers included: negative thinking/distortions, lack of motivation, limited support, fear of failure. Pt also identified steps they could take such as beginning an accomplishment log and reaching out to supports for help. Pt seemed to benefit from learning about problem solving methods and rehearsing problem-solving skills in the moment. Pt will continue IOP tx to promote mood stability, improve pain management, and further reduce negative thinking. Narrative Note: []
--- NOTE | 2023-02-10 09:00 | BH.SGPN.GN ---
Behaviors/Verbalizations/Mental Status: [] Pt alert and oriented, neatly dressed and groomed. Eye contact good. Motor activity appropriate. Speech within normal limits. Affect flat, mood calm. Thoughts linear, logical, no signs of hallucinations or delusions. Reviewed pt?s symptom tracker, no risk for suicidal ideation, plan, or intent 02/10/23 Client Response/Progress/Benefit: []Pt responded well to session, attentive and engaged. Pt reports feeling happy this morning despite being tired from ongoing ECT therapy. Pt stated ECT therapy has not yet been beneficial, but he still has many sessions left. It is pt's last week of IOP this week and pt reflected on his progress and gains. Pt shared he enjoyed group and feels like he learned a lot from the program. Pt feels that his perspective has shifted and even though he feels tired from ECT, pt feels better. Pt will continue IOP tx and discharge this . Can benefit from one more session to increase mood stability and reinforce healthy coping skills. Narrative Note: []
--- NOTE | 2023-02-10 10:10 | BH.SGPN.GN ---
Behaviors/Verbalizations/Mental Status: []Pt alert and oriented, appropriate grooming/appearance. Eye contact fair. Motor activity appropriate. Speech within normal limits. Affect constricted, mood euthymic. Thoughts linear, logical, no signs of hallucinations or delusions. Client Response/Progress/Benefit: []Pt was an engaged participant AEB taking notes, engaging in small group discussion and listening attentively to others. Attentive during psychoeducation. Contributed during interactive discussions in which peers attempted to define crisis. Pt identified some examples of potential crisis. Group also worked together to identify unhealthy responses to crisis which included: isolation, self-harm, substance abuse, avoidance, and lashing out. Pt identified personal warning signs as: isolation, self-medicating, and self-harm. Benefited from increased understanding of crisis and awareness of personal responses to crisis. Pt will continue IOP tx to continue use of healthy coping, challenge negative/distorted thoughts, adn prevent decompensation.
--- NOTE | 2023-02-10 11:05 | BH.SGPN.GN ---
Behaviors/Verbalizations/Mental Status: [] Eye contact is good. Motor activity is appropriate. Appearance is casual. Speech is Appropriate. Mood is depressed. Affect is flat. Thoughts are linear and logical. No evidence of psychosis. Client Response/Progress/Benefit: [] Pt did not participate in group discussions however was Attentive during psychoeducation. In small group pt along with peers developed an action plan for their crisis warning signs. Pt identified two crisis warning signs as well as an action plan for each. One crisis warning sign is isolation with an actions plan that involved; play with pets, self-care, get outside, watch positive show. Other warning sign was lashing out with an action plan that involved; think before I speak, remove myself from the situation. Benefited from increased awareness of crisis warning signs and by developing crisis intervention strategies. Will continue in IOP to maintain safety, prevent decompensation/re-admission to psych unit, and to increase healthy coping skills. Narrative Note: []
--- NOTE | 2023-02-10 12:02 | PCM.BH.PN_ITS ---
Progress Note Progress Note: History of Present Illness/Interim History: The patient is a 37-year-old male with a history of depression, anxiety, PTSD and alcohol and opiate use disorder in remission for 10 years who is seen in follow-up at the [facility] behavioral health IOP program. I last saw the p atient 1 month ago. The patient has since started ECT 2 weeks ago at [facility]. He states that he is tolerating the ECT well but that it does make him feel tired and somewhat foggy. He does feel he has benefited from the program and learning valuable skills while here. His mood is a little bit better than when he started the program. He denies any passive thoughts of deat h and denies suicidal ideation which was present a month ago. He denies plan for suicide, active suicidal ideation, homicidal ideation, hallucinations or delusions. He remains sober from alcohol and opiates. He does use edible marijuana for pain relief through his medical marijuana card. Current Psychiatric Medications: [] Medications unchanged from last visit and he is in addition receiving ECT 3 times a week for the past 2 weeks and will continue until he completes a full course of ECT. Mental Status Examination: [] The patient is a 37-year-old male who is casually dressed and groomed with good hygiene and is ambulatory with a normal gait. He appears normal for stated age and has no psychomotor agitation or retardation. Eye contact is good and speech is normal rate and rhythm and fluent with no pressure. Mood is depressed. Affect is mildly constricted. Thought process is organized and goal-directed. Thought content: There is no evidence of passive thoughts of , suicidal ideation, plan for suicide, homicidal ideation, hallucinations or delusions. Reality testing is intact. Judgment is intact. Insight is fair. Impulsivity is moderate. Diagnoses: [] 1. Major depressive disorder, recurrent, severe without psychosis 2. Anxiety disorder, unspecified (F41.9) 3. PTSD 4. Alcohol and opiate use disorders in remission for 10 years 5. Chronic pain 6. Work and financial issues Plan: [] The patient will be discharged from the IOP program in the next 2 days or so. He felt safe during the interview and if it anytime he does not feel safe he will let us know or go to the emergency room. He will continue to follow-up with his outpatient providers and continue his course of ECT as scheduled by [facility].
--- NOTE | 2023-02-12 08:35 | BH.IGGP_ITS ---
Aftercare Plan Demographics Treatment End Date:: 02/12/23 Psychiatrist:: Leonor Cochran Psychiatrist Office #:: [phone] [facility]/IOP Therapist:: Boogie Molina Therapist Phone #:: [phone] Medications Home Medications gabapentin 100 mg capsule 100 mg PO BID 12/31/22 lithium carbonate 300 mg capsule 300 mg PO QHS 12/31/22 omeprazole 40 mg capsule,delayed release 40 mg PO DAILY 12/31/22 prazosin 2 mg capsule 4 mg PO QHS 12/31/22 vilazodone 40 mg tablet (Viibryd) 40 mg PO DAILY 12/31/22 mirtazapine 30 mg tablet (Remeron) 30 mg PO QHS 3 days #3 tabs 01/14/23 Plan Details Progress/Aftercare Plan Details:: Significant progress noted. Grzegorz was consistent throughout IOP and utilized strategies learned in the program. According to DSM-5 outcomes scores Grzegorz had a 53% reduction in symptoms since admission. Outcome measurement indicates a 25% reduction in depression domain, 25% reduction in the anger domain, 33% reduction in the anxiety domain, and 67% reduction in the SI domain (thoughts have been mostly fleeting and passive). Outcomes also indicate improvement in sleep and memory. Outcomes show a 80% red uction in repetitive thoughts/behaviors and a 100% reduction in the dissociation domain. Outcomes also indicate improvement in Feeling closer to others enjoying relationships, and knowing what you want out of life. Plan is to follow up with outpatient psychiatrist, counselor, and PCP as well as attending weekly aftercare group through [facility]. Appointments Appointments/Referrals to Other Services:: Dr. Patricia Card (Psychiatrist) Tre Milton (Therapist) Dr. Alisha Velez (PCP)
--- NOTE | 2023-02-12 08:37 | BH.DS_ITS ---
Discharge Summary Demographics Date of Admission:: 01/05/23 Discharge Date: 02/12/23 Presenting Problems at Admission:: Pt is a 37 y/o male who stepped down to [facility] level of care after discharge from [facility] on 01/02/23. Diagnosed with MDD, Anxiety Disorder, unspecified, PTSD, and Alcohol and Opiate Use disorders (full remission). Referred to [facility] level of care after recent psychiatric admission to [facility] (12/09/22-12/13/22) for suicidal ideations with thoughts of methods (OD on pills). Pt reports that he voluntarily admitted himself. Pt reports that inpatient hospitalization was horrible and not beneficial to his mental health. Pt endorses depressed mood, long-standing fleeting SI, poor appetitive, crying spells, low energy, isolation, feelings of worthlessness, poor sleep, and anhedonia. Reports panic attacks, racing thoughts, erratic mood, and hx of hypomanic type episodes (energy out of the blue with increased energy for a few days). Denies HI or psychosis. Denies current substance use. Hx of addiction to pain medications and alcohol, however again sober aside from cannabis use for which he has a medical card. Significant psychosocial stressors which include possibility of his house going into [facility], inability to maintain consistent employment due to physical and mental health struggles, financial struggles, and chronic pain. Pt was last employed in 06/2022. Discharge Diagnoses:: 1. Major depressive disorder, recurrent, severe without psychosis 2. Anxiety disorder, unspecified (F41.9) 3. PTSD 4. Alcohol and opiate use disorders in remission for 10 years Reason for Discharge:: Completed treatment plan goals. No longer meets [facility] level of care. Treatment Progress During Treatment & Response: Significant progress noted. Grzegorz was consistent throughout [facility] and utilized strategies learned in the program. According to DSM-5 outcomes scores Grzegorz had a 53% reduction in symptoms since admission. Outcome measurement indicates a 25% reduction in depression domain, 25% reduction in the anger domain, 33% reduction in the anxiety domain, and 67% reduction in the SI domain (thoughts have been mostly fleeting and passive). O utcomes also indicate improvement in sleep and memory. Outcomes show a 80% reduction in repetitive thoughts/behaviors and a 100% reduction in the dissociation domain. Outcomes also indicate improvement in Feeling closer to others enjoying relationships, and knowing what you want out of life. Was noticed that pt's outcome scores plateaued since starting ECT and that his passive SI actually increased slightly which is mainly due to lethargy associated with ECT. Pt states that IOP was beneficial I really needed this and continued to help with support and psychoeducation as he was getting ECT. Issues Still to be Addressed:: Depression, mistaken beliefs, psychosocial stressors, anxiety, and fleeting passive thoughts of . Discharge Recommendations/Instructions:: Plan is to follow up with outpatient psychiatrist, counselor, and PCP as well as attending weekly aftercare group through [facility]. Pt has appointment set with Dr. Patricia Card (Psychiatrist), Tre Milton (Therapist), Dr. Alisha Velez (PCP). Discharge Handout
--- NOTE | 2023-02-12 10:05 | BH.SGPN.GN ---
Behaviors/Verbalizations/Mental Status: []Pt alert and oriented, neatly dressed and groomed. Eye contact good. Motor activity appropriate. Speech within normal limits. Affect flat, mood calm. Thoughts linear, logical, no signs of hallucinations or delusions. Client Response/Progress/Benefit: [] Pt was active participant in group discussions and activities. Attentive during psychoeducation. Pt listened during interactive discussion in which the group defined self-care and discussed its benefits. ?Worked with peers in a small group to identify myths related to self-care which included; it takes too much time/money, I don?t deserve it, and it means I?m selfish. Pt participated in small groups where they worked to bust these self-care myths. Benefited from increased awareness of self-care, its benefits, and the consequences of not utilizing self-care strategies. Pt shared right now it is hard for him to engage in hobbies because ECT makes pt so tired. Will continue IOP tx for one more day to reinforce healthy coping skills. Narrative Note: []
--- NOTE | 2023-02-12 10:31 | BH.MDN ---
Multi-Disciplinary Note Note 30-min Individual: Time Started:: 09:15 Date: 02/12/23 Purpose of session/treatment goals addressed:: Used the session to review treatment plan, progress in IOP, and to finalize aftercare plans. Eye Contact:: Good Motor Activity:: Appropriate Appearance:: Disheveled Speech:: Appropriate Mood:: Euthymic Affect:: Full Thoughts:: Linear, Logical and No evidence of hallucinations/delusions noted Staff Interventions:: discharge planning and reviewed DSM-5 Client Response:: Significant progress noted. Grzegorz was consistent throughout IOP and utilized strategies learned in the program. According to DSM-5 outcomes scores Grzegorz had a 53% reduction in symptoms since admission. Outcome measurement indicates a 25% reduction in depression domain, 25% reduction in the anger domain, 33% reduction in the anxiety domain, and 67% reduction in the SI domain (thoughts have been mostly fleeting and passive). Outcomes also indicate improvement in sleep and memory. Outcomes show a 80% reduction in repetitive thoughts/behaviors and a 100% reduction in the dissociation domain. Outcomes also indicate improvement in Feeling closer to others enjoying relationships, and knowing what you want out of life. Was noticed that pt's outcome scores plateaued since starting ECT and that his passive SI actually increased slightly which is mainly due to lethargy associated with ECT. Pt states that IOP was beneficial I really needed this and continued to help with support and psychoeducation as he was getting ECT. Reviewed treatment plan goals and he was able to identify triggers to depression and copings skills (journaling, thought challenging, music, and grounding). Able to identify cognitive distortions he commonly uses (absolute thinking, shoulds, and labeling). Started and maintained a thought log. Risks/Concerns:: No risks or concerns noted. Progress Toward Goals/Plan:: Pt completed treatment plan goals and objectives. According to outcomes and self-report overall decrease in symptoms since starting PHP/IOP. Should be noted that side effects of ECT (lethargy, fogginess) did impact effectiveness of IOP for the past 3 weeks, however pt reported that the support, accountability, and psychoeducation continued to be helpful as he struggles with ECT side effects. Pt continues to have significant psychosocial stressors (finances, disability denial, house forclosure) however has been active in problem-solving solutions rather than giving up. Plan is to discharge from IOP today. Pt will follow up with psychiatrist and counselor at [place] [id number]. He will also attend weekly aftercare group here at [facility]. Time Stopped:: 09:45
--- NOTE | 2023-02-12 11:05 | BH.SGPN.GN ---
Behaviors/Verbalizations/Mental Status: []Pt alert and oriented, casually dressed and groomed. Eye contact good. Motor activity appropriate. Speech within normal limits. Affect flat-incongruent to mood, mood euthymic. Thoughts linear, logical, no signs of hallucinations or delusions. Client Response/Progress/Benefit: [] Pt engaged participant AEB completing self-assessment worksheet and providing input throughout discussion. Pt completed worksheet identifying current self-care practices and what self-care activities pt wants to start using. Pt selected spiritual self-care to begin practicing more consistently. Pt plans to do this by unplugging from his phone and going outside more each day. Appeared to benefit from completing the self-care evaluation and gaining insights into current self-care practices, as well as identifying areas in which pt would like to improve upon.? Pt will discharge from IOP tx today as pt has made significant progress towards tx goals and no longer meets criteria for IOP level of care. Narrative Note: []
== END 2023-02-12 12:00 | disposition home or self-care (01) ==
LOC: BHIOP 07:15
PROVIDERS: PCP Family Medicine; Referring Provider Psychiatry & Neurology Psychiatry; Visit Provider Psychiatry & Neurology Psychiatry
DX: F33.2 Major depressive disorder, recurrent severe without psychotic features (principal); F41.9 Anxiety disorder, unspecified; F43.10 Post-traumatic stress disorder, unspecified; F10.91 Alcohol use, unspecified, in remission; F12.91 Cannabis use, unspecified, in remission
CPT/HCPCS: S9480; 90832; 90834; 90853

== ENCOUNTER 2023-02-26 11:57 | Outpatient (RCR) | payer OTHER, MEDICAID, SELFPAY ==
--- NOTE | 2023-02-26 14:00 | BH.COMM ---
Communication Note Communication with Client Communication Note: Patient completed IOP and presents today to start relapse prevention group which meets once weekly (1.5 hours) for 8 weeks. Case discussed with Dr. Araujo with plan to admit with dx of F33.2
--- NOTE | 2023-02-26 16:00 | BH.MTP_ITS ---
Master Treatment Plan Patient Information Program Physician:: Dr. Araujo Primary Therapist:: Winter Ayers, [facility] Psychiatric Diagnoses Psychiatric Diagnoses:: 1. Major depressive disorder, recurrent, severe without psychosis 2. Anxiety disorder, unspecified (F41.9) 3. PTSD 4. Alcohol and opiate use disorders in remission for 10 years Diagnosis Code(s):: F33.2 Estimated LOS Estimated LOS (in weeks):: 6 Problem/Goal #1 Problem/Goal #1 Stated Goal:: Client will maintain or see a reduction in symptoms AEB client score on the DSM 5 cross-cutting measure and improve client's daily functioning. Objectives Objective #1: Stated Objective: Client will continue to consistently apply healthy coping skills to maintain progress made in IOP tx. Interventions: Through group therapy, client will review warning signs and triggers as well as healthy coping skills learned in IOP tx to successfully maintain gains while transitioning into outpatient therapy. Discharge Criteria: Client will have accomplished this goal when client's score on the DSM-5 cross-cutting measure has either maintained or reduced over an 8 week period. Target Date: 04/23/23 Review Date: 03/26/23 Objective #2: Stated Objective: Client will learn and utilize 2-3 maintenance strategies to prevent decompensation from original IOP DSM-5 scores. Interventions: Through group therapy, client will be provided with education on healthy maintenance behaviors, relapse prevention techniques, and healthy coping strategies. Discharge Criteria: Client will have accomplished this goal when can report using at least 2 maintenance skills to prevent decompensation compared to original IOP DSM-5 scores Target Date: 04/23/23 Review Date: 03/26/23
== END 2023-03-05 23:59 ==
LOC: BHOG 11:57
PROVIDERS: PCP Family Medicine; Referring Provider Psychiatry & Neurology Psychiatry; Visit Provider Psychiatry & Neurology Psychiatry
DX: F33.2 Major depressive disorder, recurrent severe without psychotic features (principal)
CPT/HCPCS: 90853

== ENCOUNTER 2023-03-06 08:18 | Outpatient (RCR) | payer OTHER, MEDICAID, SELFPAY ==
--- NOTE | 2023-03-12 14:00 | BH.SGPN.GN ---
Behaviors/Verbalizations/Mental Status: []Pt alert and oriented, casually dressed and groomed. Eye contact good. Motor activity appropriate. Speech within normal limits. Affect congruent, mood euthymic. Thoughts linear, logical, no signs of hallucinations or delusions. Client Response/Progress/Benefit: []Pt receptive of session, engaged throughout. Pt shared has to get a new therapist because the one he was seeing has left the agency. Pt has been taking his medications consistently and he reports utilizing healthy coping skills outside of aftercare. These skills included: getting back on track with my meds and journaling. ?Receptive of discussion on sitting with the uncomfortable and emotional urges. Pt contributed to the discussion of distress tolerance and how building distress tolerance can help improve mood stability and resilience. Pt shared he wants to work on distress tolerance skills by practicing opposite action when he feels anxious. Pt seemed to benefit from support from peers and increasing understanding of distress tolerance. Will continue IOP aftercare group to maintain gains and reinforce healthy coping skills.? Narrative Note: []
--- NOTE | 2023-03-19 14:00 | BH.SGPN.GN ---
Behaviors/Verbalizations/Mental Status: []Client alert and oriented, casual in appearance. Eye contact good. Motor activity appropriate. Speech within normal limits. Affect congruent. Mood euthymic. Thoughts linear, logical, no signs of hallucinations or delusions Client Response/Progress/Benefit: [] Pt responded well to session AEB providing input throughout and listening attentively to others. Pt reported meeting their with outpatient counselor this week and psychiatry earlier today. Reports taking medications as prescribed. Pt identified several coping skills he has been using over the past week to continue to manage mental health sx, which included: meditation, journaling, and yoga. Pt connected with self-reflection discussion. Worked with group to identify the benefits of self-reflection. Appeared to benefit from identifying how to incorporate self-reflection into daily life. Pt completed aftercare specific self-reflection activity and indicated he has seen continued progress in practicing consistent self-care but would like to continue to focus on making improvements in using emotion regulation skills more regularly, especially when experiencing pain. Pt to continue aftercare to maintain gains and prevent decompensation. Narrative Note: []
--- NOTE | 2023-03-19 16:00 | BH.TPR ---
Treatment Plan Review Demographics Date of Admission:: 02/26/23 Date of Treatment Plan Review:: 03/19/23 Admitting Diagnoses:: 1. Major depressive disorder, recurrent, severe without psychosis F33.2 2. Anxiety disorder, unspecified (F41.9) 3. PTSD 4. Alcohol and opiate use disorders in remission for 10 years Current Diagnoses:: 1. Major depressive disorder, recurrent, severe without psychosis F33.2 2. Anxiety disorder, unspecified (F41.9) 3. PTSD 4. Alcohol and opiate use disorders in remission for 10 years Patient Status Patient's Response to Treatment:: Pt has responded well to treatment AEB consistent attendance to aftercare sessions. Pt is a more passive participant, but takes notes throughout sessions and reports use of skills outside treatment environment. Pt utilizes IOP aftercare to process current stressors, practice giving herself credit for daily accomplishments, continue to work on challenging negative core beliefs and unrealistic expectations of self, and identify more adaptive coping strategies. Status of Current Problems and Symptoms: Client continues to report moderate depressed symptoms, which client does attribute some of this to lethargy from his ECT treatments. Client reports mild to moderate anxious symptoms. Client continues to struggle with mistaken beliefs and fleeting thoughts of . Client is close to finishing up his ECT treatments which he is hopeful will help improve his energy. Progress Problem #1: Problem Name:: Pt will maintain or decrease symptoms from IOP admission data. Status of Goals:: Obj 1 - complete with ongoing work encouraged- Pt has been able to maintain gains made in IOP as pt?s DSM-5 scores are 53% lower than they were at IOP admission. 25% decrease in depressive symptoms and 42% decrease in anxiety when compared to IOP admission scores. 67% decrease in thoughts of hurting self. Obj 2 - complete with ongoing work encouraged. Pt has been consistently reporting use of journaling, meditation, starting to get into yoga, and taking medications consistently. Team Recommendations:: Recommended client continue IOP aftercare group to show maintenance of progress. Will continue to encourage client to attend regular outpatient counseling and psychiatry appointments as well.
== END 2023-04-04 23:59 ==
LOC: BHOG 08:18
PROVIDERS: PCP Family Medicine; Referring Provider Psychiatry & Neurology Psychiatry; Visit Provider Psychiatry & Neurology Psychiatry
DX: F33.2 Major depressive disorder, recurrent severe without psychotic features (principal); F41.9 Anxiety disorder, unspecified; F43.10 Post-traumatic stress disorder, unspecified; F10.91 Alcohol use, unspecified, in remission; F11.91 Opioid use, unspecified, in remission
CPT/HCPCS: 90853

== ENCOUNTER 2023-04-06 09:15 | Outpatient (RCR) | payer OTHER, MEDICAID, SELFPAY | END 2023-04-16 09:25 | disposition home or self-care (01) | LOC: BHOG 09:15 | PROVIDERS: PCP Family Medicine; Referring Provider Psychiatry & Neurology Psychiatry; Visit Provider Psychiatry & Neurology Psychiatry | DX: F33.2 Major depressive disorder, recurrent severe without psychotic features (principal); F41.9 Anxiety disorder, unspecified; F43.10 Post-traumatic stress disorder, unspecified; F10.91 Alcohol use, unspecified, in remission; F11.91 Opioid use, unspecified, in remission ==

== ENCOUNTER → 2023-06-15 | Outpatient (CLI) | payer MEDICAID, SELFPAY ==
--- NOTE | 2023-06-15 10:40 | RAD_ITS ---
STUDY: X-RAY - LUMBAR SPINE REASON FOR EXAM: Male, 37 years old. Back pain. TECHNIQUE: 2 view(s) of the lumbar spine were obtained. COMPARISON: None FINDINGS: Transitional vertebral body. Normal lumbar lordosis. There is no substantial scoliosis. There is a normal alignment of the vertebrae. Normal vertebral bodies and endplates. Mild intervertebral disc space narrowing at L3-4, L4-5, L5-transitional vertebral body and transitional vertebral body-S1. Normal soft tissues. RAD/Lumbar Spine 2 or 3 Views IMPRESSION: Mild lower lumbosacral spondylosis. Transitional vertebral body. Electronically Signed: Felton Adams MD at 12:56 EST ,
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
== END | disposition home or self-care (01) ==
LOC: RAD 10:30
PROVIDERS: PCP Family Medicine; Referring Provider Anesthesiology Pain Medicine; Visit Provider Anesthesiology Pain Medicine
DX: M51.34 Other intervertebral disc degeneration, thoracic region (principal); M51.36 Other intervertebral disc degeneration, lumbar region; S38.1XXA Crushing injury of abdomen, lower back, and pelvis, initial encounter
CPT/HCPCS: 72070; 72100

== ENCOUNTER 2023-06-25 14:47 | Outpatient (RCR) | payer MEDICAID, SELFPAY ==
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
== END 2023-06-25 19:00 | disposition home or self-care (01) ==
LOC: PT 14:47
PROVIDERS: PCP Family Medicine; Referring Provider Anesthesiology Pain Medicine; Visit Provider Anesthesiology Pain Medicine
DX: M51.36 Other intervertebral disc degeneration, lumbar region (principal); M51.34 Other intervertebral disc degeneration, thoracic region; M54.9 Dorsalgia, unspecified
CPT/HCPCS: 97110; 97162

== ENCOUNTER 2023-11-20 16:30 | Outpatient (RCR) | payer MEDICAID, SELFPAY ==
--- NOTE | 2023-10-09 12:49 | HP.PTEVAL_ITS ---
Patient's Visit Information Visit Information Visit Information: EDEN ROJAS is a 38 year old M referred to Physical Therapy by Dr. Valerie Valentine MD with a diagnosis of Low back pain. Date of Evaluation: 10/09/23 Physical Therapist: Robbi Hernandez DPT Visit Plan Frequency: 1x/Week Duration: 6 Weeks Plan: -use of modalities to warm up tissues at begin of session (pt likes US, can also do STM, HP, or cupping) -trunk ROM and stretching (can add in thoracic PAs to help increase motion) -neutral spine strengthening -hip strengthening Pt with chronic low back pain, not super irritable with pain but need to stretch, very stiff thoracic spine and add in strength after stretches, flexion feels better than ext (HEP: LTR, open books, sciatic nerve glides, seated HS stretch, cat/cow, angella pose with lateral bend, thread the needle, Subjective Subjective: Pt presents to PT with low back pain that has been present for years. He underwent a crush injury to his axial spine when a hay bale landed on his head/neck, had PT late last year but is back since pain has gotten worse, spreading to thoracic and now lumbar regions. Pt not currently working, bending over is painful and can reach overhead for short periods of time, twisting is very painful. Pt takes pain meds and sleeping pills at night, so sleeping okay, on his side. Pt denies any N/T in legs, sometimes has in his hands but goes away once he moves his arm around. Pt reports needing to do another course of PT before getting an MRI. Pt notes a lot of tightness in low back muscles, denies feeling of legs giving out. No issues with stairs, pt able to sit for 5 minutes before he needs to shift around d/t discomfort. Pt tries to get up and walk every hour d/t feeling of tightness and spasm in back. Pt felt ultrasound was helpful heat, pt has been through work conditioning but felt it did not help. GOALS: decrease tightness/pain, tolerate prolonged positions for longer Pain Back: Pain Intensity (Out of 10): 6 Pain Intensity Range: 6 and 9 Objective Objective: ROM: lumbar - flex 100% stretch, ext 100% increase in pain, R LSB 75%, L LSB 100%, R rotation 75% felt more of a pull, L rotation 100% stretch hip - WNL ana with no increase in pain, SKTC and DKTC felt good MMT: L - knee ext 4+/5, knee flex 4-/5, DF 4/5, PF 4+/5, hip ABD 4-/5, hip flex 3+/5 R - knee ext 4/5, knee flex 4/5, DF 4/5, PF 4+/5, hip ABD 3+/5, hip flex 4-/5 PALPATION: tightness and tenderness in thoracic and lumbar paraspinals JOINT PLAY: stiffness and pain in T5-L5, thoracic spine hypomobile and more uncomfortable than lumbar with PAs GAIT: stiffness and no rotation in thoracic spine, increase rotation and movement in lumbar spine/pelvis with limited arm swing SLUMP: (-) but felt big stretch in L HS/calf/foot Pts major limitations are muscular tightness, decreased thoracic mobility, and mild hip weakness. Flexion in general felt like a stretch and was more comfortable than ext. Balance/Special Test Scores Oswestry Low Back Score: 30 Goals Goal 1:: Pt demonstrate full lumbar ROM with min to no feeling of stretch Goal Time Frame: 4-6 Weeks Goal 2:: Pt will be able to sit for 10+ minutes without needing to shift positions Goal Time Frame: 4-6 Weeks Goal 3:: Pt will demonstrate symmetrical LE strength Goal Time Frame: 4-6 Weeks Goal 4:: Pt will report pain <4/10 with ADLs Goal Time Frame: 4-6 Weeks Goal 5:: Pt will be able to perform light gardening tasks with <5/10 pain Goal Time Frame: 4-6 Weeks Rehabilitation Potential Physical Therapy Diagnosis: Pt presents to PT with increased muscular tightness of thoracic and lumbar spine, hypomobility of thoracic spine, and mild weakness of LEs/hips. Pt would benefit from skilled PT services to increase tissue extensibility, decreased pain, and educate pt on exercises to maintain function. Rehabilitation Potential: Fair Anticipated Interventions Patient/Client Instruction: Educate patient on: Plan of Care and Benefits of Fitness Program For the Purpose of:: To decrease pain, To increase ROM, To improve muscle performance and motor function, To improve ability to perform ADL's, To increase tolerance to activity/condition/position, To improve performance and independence with ADL's, To improve ability of physical actions for home/community/work/leisure, To decrease soft tissue restriction, To increase flexibility/ROM, To improve health and function, To improve self management, To improve ability to perform tasks related to life management and To improve tolerance to ADL's Therapeutic Exercise to Include: Strength training, Body mechanics, Postural training, Flexibilty training, Passive ROM, Active ROM, Dynamic Lumbar Stabilization, Lambert Exercises and Scapular Strength/Stabilization For the Purpose of:: To decrease pain, To improve muscle performance and motor function, To increase tolerance to activity/condition/position, To improve performance and independence with ADL's, To improve ability of physical actions for home/community/work/leisure, To increase flexibility/ROM, To assume or resume ADL's, To improve health and function, To foster healthy habits, To improve self management, To prevent re-injury, To improve ability to perform tasks related to life management and To improve tolerance to ADL's Manual Therapy Techniques to Include: Mobilization, Passive ROM, Functional dry needling and Soft tissue mobilization For the Purpose of:: To decrease pain, To improve health of tissue, To decrease soft tissue restriction and To increase flexibility/ROM TENS: Yes Thermo therapy (hot pack): Yes Ultrasound (thermal/non thermal): Yes For the Purpose of:: To decrease pain Text: Thank you for the opportunity to evaluate your patient. For Medicare and Medicare HMO plans, please review the plan of care and approve it. It will need to be FAXED BACK to us at [phone] for Medicare purposes. For Medicare only, by signing this I certify the plan of care. Please let me know if there are questions or concerns regarding this plan of care. Physician Signature: Date:
== END 2023-11-20 19:00 | disposition home or self-care (01) ==
LOC: PT 16:30
PROVIDERS: PCP Family Medicine; Referring Provider Anesthesiology Pain Medicine; Visit Provider Anesthesiology Pain Medicine
DX: M54.50 Low back pain, unspecified (principal)
CPT/HCPCS: 97035; 97110; 97140; 97161

== ENCOUNTER → 2024-06-20 | Outpatient (CLI) | payer MEDICAID, SELFPAY ==
--- NOTE | 2024-06-20 12:19 | MRI_ITS ---
EXAM: MR THORACIC SPINE WITHOUT INTRAVENOUS CONTRAST CLINICAL INDICATION: RADICULOPATHY, THORACIC REGION TECHNIQUE: Multiplanar and multisequence MR images of the thoracic spine without intravenous contrast. COMPARISON: Thoracic spine radiographs, 06/15/2023. FINDINGS: VERTEBRAE: Multilevel facet arthrosis. Multilevel endplate osteophytosis. Multiple Schmorl''s nodes throughout the thoracic region. No fracture. Normal alignment. There is preservation of the normal thoracic kyphosis. No scoliosis. DISCS/SPINAL CANAL/NEURAL FORAMINA: Multilevel intervertebral disc height loss and disc desiccation. Multiple disc bulges and/or herniations, the most conspicuous at T7-T8 and T8-T9 resulting in mild spinal canal stenosis and abutment of the spinal cord without spinal cord deformation or spinal cord signal abnormality. SPINAL CORD: No spinal cord signal abnormality is identified. SOFT TISSUES: No significant abnormality. MRI/Spine Thoracic (Routine) IMPRESSION: Multilevel degenerative changes with there are multiple disc herniations as well as facet and endplate osteophytosis. No significant mass effect upon the spinal cord or critical spinal canal stenosis. Electronically Signed: Darrick Davis DO at 20:11 EST ,
== END | disposition home or self-care (01) ==
LOC: MRI 11:50
PROVIDERS: PCP Family Medicine; Visit Provider Anesthesiology Pain Medicine
DX: M54.14 Radiculopathy, thoracic region (principal); M54.16 Radiculopathy, lumbar region
CPT/HCPCS: 72146